=== PATIENT | male | born 1970 | race American Indian/Alaskan Native ===

== ENCOUNTER → 2019-07-17 12:21 | Outpatient (BNVA) | payer MEDICARE, SELFPAY | PROVIDERS: Family Provider Family Medicine; PCP Family Medicine; Visit Provider Specialist | DX: G40.319 Generalized idiopathic epilepsy and epileptic syndromes, intractable, without status epilepticus (principal); F17.210 Nicotine dependence, cigarettes, uncomplicated | CPT/HCPCS: 95816 ==

== ENCOUNTER → 2019-07-18 15:31 | Outpatient (BNVA) | payer MEDICARE, MEDICAID, SELFPAY | PROVIDERS: Family Provider Family Medicine; PCP Family Medicine; Visit Provider Family Medicine | DX: M25.519 Pain in unspecified shoulder (principal); E78.5 Hyperlipidemia, unspecified; E11.9 Type 2 diabetes mellitus without complications; I10 Essential (primary) hypertension | CPT/HCPCS: 73030; 80053; 80061; 83036; 85025 ==

== ENCOUNTER 2019-09-18 12:27 | Outpatient (CLI) | payer MEDICARE, SELFPAY ==
--- NOTE | 2019-09-18 12:42 | CT_ITS ---
WS: [id number] CT arthrogram right shoulder TECHNIQUE: CT arthrogram right shoulder with coronal and sagittal reformatted images. CLINICAL INFORMATION: SHOULDER PAIN COMPARISON: None. DLP: [address] scans at [facility] use at least one of these dose optimization techniques: automat ed exposure control; mA and/or kV adjustment per patient size (includes targeted exams where dose is matched to clinical indication); or iterative reconstruction. FINDINGS: CT arthrogram right shoulder post fluoroscopic guided administration of contrast. Mild degenerative a rthritis at the AC joint with mild downsloping of the acromion. Distal clavicle is normal. Normal bic eps tendon in the bicipital groove. Normal physiologic fluid along the biceps tendon sheath. Biceps l abral anchor appears intact. Supraspinatus and infraspinatus appear normal. No evidence of dissecting contrast to indicate supraspinatus tear. No significant atrophy of the muscle belly. Normal teres minor. Distal subscapularis tendon appears intact. Normal middle glenohumeral ligament. Glenoid labrum appears grossly intact. No visualized labral tears. Somewhat diminutive shoulder capsu le with axillary recess blunting can be seen with adhesive capsulitis in appropriate clinical setting . Normal glenohumeral articulation. Normal glenoid. Right lung is well aerated. CT/CT shoulder RT w con [id number] IMPRESSION: 1. Rotator cuff appears intact. No full-thickness rotator cuff tears. No rotat or cuff atrophy or muscle belly atrophy. 2. Normal biceps tendon in the bicipital groove. 3. Normal biceps labral anchor. Glenoid labrum appears intact 4. Somewhat diminutive shoulder capsule with blunting and thickening of the ax illary recess can be seen with adhesive capsulitis in appropriate clinical sett ing. 5. Mild degenerative arthritis AC joint with mild downsloping of the acromion.
--- NOTE | 2019-09-18 12:42 | IR_ITS ---
WS: [id number] SHOULDER ARTHROGRAM RIGHT Fluoroscopic guided right shoulder arthrogram CLINICAL INFORMATION: SHOULDER PAIN COMPARISON: None. PROCEDURE: The procedure including risks, benefits and complications were discussed with the patient, who agreed to proceed. Using sterile technique, the patient was prepped and draped in the usual ster ile fashion. After 1% lidocaine injection using fluoroscopic guidance, a 22-gauge spinal needle was a dvanced into the glenohumeral joint. Approximately 13 ml of a solution containing 10 ml normal saline , 10 ml Omnipaque 300 was administered. No immediate complications. FLUOROSCOPY TIME: 0.2 minutes. IR/IR arthrogram shoulderRT [id number] IMPRESSION: Uncomplicated fluoroscopic-guided right shoulder arthrogram. CT to follow.
[2019-09-18] MEDS: iohexol 300 mg/mL 50 mL Btl INTRA-ARTI (13:49)
== END 2019-09-18 12:28 | disposition home or self-care (01) ==
LOC: RADWPI 12:33
PROVIDERS: Family Provider Family Medicine; PCP Family Medicine; Visit Provider Orthopaedic Surgery
DX: M19.011 Primary osteoarthritis, right shoulder (principal); M25.511 Pain in right shoulder
CPT/HCPCS: 23350; 73201; 77002; J2001; Q9967

== ENCOUNTER 2019-10-03 06:00 | Outpatient (RCR) | payer MEDICARE, MEDICAID, SELFPAY | END 2019-10-10 23:59 | disposition home or self-care (01) | LOC: TPT 06:00 | PROVIDERS: Family Provider Family Medicine; PCP Family Medicine; Referring Provider Orthopaedic Surgery; Visit Provider Orthopaedic Surgery | DX: M75.01 Adhesive capsulitis of right shoulder (principal) | CPT/HCPCS: 80053; 80061; 97110; 97163; 97530 ==

== ENCOUNTER 2019-10-11 06:00 | Outpatient (RCR) | payer MEDICARE, MEDICAID, SELFPAY | END 2019-11-09 23:59 | disposition home or self-care (01) | LOC: TPT 06:00 | PROVIDERS: Family Provider Family Medicine; PCP Family Medicine; Visit Provider Orthopaedic Surgery | DX: M75.01 Adhesive capsulitis of right shoulder (principal) | CPT/HCPCS: 97110; 97112; 97140; 97530 ==

== ENCOUNTER 2019-11-13 | Outpatient (RCR) | payer MEDICARE, MEDICAID, SELFPAY | END 2019-11-29 | disposition home or self-care (01) | LOC: TPT | PROVIDERS: Family Provider Family Medicine; PCP Family Medicine; Visit Provider Orthopaedic Surgery | DX: M75.01 Adhesive capsulitis of right shoulder (principal) | CPT/HCPCS: 97110; 97140; 97530 ==

== ENCOUNTER → 2020-01-02 13:26 | Outpatient (BNVA) | payer MEDICARE, MEDICAID, SELFPAY | PROVIDERS: Family Provider Family Medicine; PCP Family Medicine; Visit Provider Specialist | DX: G40.319 Generalized idiopathic epilepsy and epileptic syndromes, intractable, without status epilepticus (principal); G40.802 Other epilepsy, not intractable, without status epilepticus; T50.905A Adverse effect of unspecified drugs, medicaments and biological substances, initial encounter; M75.01 Adhesive capsulitis of right shoulder | CPT/HCPCS: 99214 ==

== ENCOUNTER → 2020-03-13 14:05 | Outpatient (BNVA) | payer MEDICARE, MEDICAID, SELFPAY | PROVIDERS: Family Provider Family Medicine; PCP Family Medicine; Visit Provider Specialist | DX: G40.319 Generalized idiopathic epilepsy and epileptic syndromes, intractable, without status epilepticus (principal); F17.210 Nicotine dependence, cigarettes, uncomplicated; G25.0 Essential tremor | CPT/HCPCS: 99214 ==

== ENCOUNTER → 2020-04-18 13:51 | Outpatient (BNVA) | payer MEDICARE, MEDICAID, SELFPAY | PROVIDERS: Family Provider Family Medicine; PCP Family Medicine; Visit Provider Family Medicine | DX: E11.9 Type 2 diabetes mellitus without complications (principal); E78.5 Hyperlipidemia, unspecified | CPT/HCPCS: 80053; 80061; 83036; 85025 ==

== ENCOUNTER → 2020-04-22 16:18 | Outpatient (BNVA) | payer MEDICARE, MEDICAID, SELFPAY | PROVIDERS: Family Provider Family Medicine; PCP Family Medicine; Visit Provider Family Medicine | DX: G25.0 Essential tremor (principal) | CPT/HCPCS: 84439; 84443 ==

== ENCOUNTER → 2020-09-05 11:04 | Outpatient (BNVA) | payer MEDICARE, MEDICAID, SELFPAY | PROVIDERS: Family Provider Family Medicine; PCP Family Medicine; Visit Provider Urology | DX: N50.819 Testicular pain, unspecified (principal); R10.32 Left lower quadrant pain; F17.210 Nicotine dependence, cigarettes, uncomplicated | CPT/HCPCS: 81003 ==

== ENCOUNTER → 2020-09-11 14:01 | Outpatient (BNVA) | payer MEDICARE, MEDICAID, SELFPAY | PROVIDERS: Family Provider Family Medicine; PCP Family Medicine; Visit Provider Specialist | DX: G40.802 Other epilepsy, not intractable, without status epilepticus (principal); G40.319 Generalized idiopathic epilepsy and epileptic syndromes, intractable, without status epilepticus; G25.0 Essential tremor; Z96.82 Presence of neurostimulator; F17.210 Nicotine dependence, cigarettes, uncomplicated | CPT/HCPCS: 99213; 99214 ==

== ENCOUNTER 2020-09-25 06:57 | Outpatient (CLI) | payer MEDICARE, MEDICAID, SELFPAY ==
--- NOTE | 2020-09-25 07:15 | US_ITS ---
WS: [id number] SCROTAL ULTRASOUND REASON FOR EXAM: GROIN PAIN COMPARISON: None available. TECHNIQUE: Grayscale and duplex color Doppler ultrasound examination of the scrotum. FINDINGS: RIGHT: Right testes measures 4.9 cm x 3.4 cm x 2.5 cm. Normal echotexture. No focal lesion. Normal blood alexia w. No hydrocele. Right epididymis measures 1.5 cm maximum diameter. LEFT: Left testes measures 3.5 cm x 4.0 cm x 2.5 cm. Normal echotexture. No focal lesion. Normal blood flow . Moderate hydrocele. Left epididymis measures 1.2 cm maximum dimension. No focal abnormality in the left groin. US/US scrotum [id number] IMPRESSION: Moderate left hydrocele.
--- NOTE | 2020-09-25 08:00 | XR_ITS ---
WS: [id number] XR KUB [id number] REASON FOR EXAM: GROIN PAIN FINDINGS: Bowel gas pattern demonstrates a moderate amount of stool throughout the colon. No dilated bowel is i dentified. No free air or retroperitoneal air is noted. No significant abdominal or pelvic calcifications are identified. The configuration of the lumbar spine in the lower thoracic spine suggest a flowing syndesmophyte for mation, symmetric. This would raise the possibility of ankylosing spondylitis. XR/XR KUB [id number] IMPRESSION: No acute abdominal or pelvic abnormality. Findings suggestive of ankylosing spondylitis. The other entity that can have this appearance. The patient may already have an established diagnosis of one o f these.
== END 2020-09-25 06:58 | disposition home or self-care (01) ==
PROVIDERS: PCP Family Medicine; Visit Provider Urology
DX: R10.32 Left lower quadrant pain (principal); N43.3 Hydrocele, unspecified
CPT/HCPCS: 74018; 76870; 81003

== ENCOUNTER → 2020-11-12 16:10 | Outpatient (BNVA) | payer MEDICARE, MEDICAID, SELFPAY | PROVIDERS: PCP Family Medicine; Visit Provider Family Medicine | DX: I10 Essential (primary) hypertension (principal); E78.5 Hyperlipidemia, unspecified; E11.9 Type 2 diabetes mellitus without complications; E78.2 Mixed hyperlipidemia; G47.00 Insomnia, unspecified; R56.9 Unspecified convulsions; Z68.29 Body mass index [BMI] 29.0-29.9, adult; F17.210 Nicotine dependence, cigarettes, uncomplicated | CPT/HCPCS: 80053; 80061; 83036; 84443; 85025 ==

== ENCOUNTER → 2021-01-14 15:01 | Outpatient (BNVA) | payer MEDICARE, MEDICAID, SELFPAY | PROVIDERS: PCP Family Medicine; Visit Provider Specialist | DX: G40.802 Other epilepsy, not intractable, without status epilepticus (principal); G40.319 Generalized idiopathic epilepsy and epileptic syndromes, intractable, without status epilepticus; M54.2 Cervicalgia; G25.0 Essential tremor; Z96.82 Presence of neurostimulator; F17.210 Nicotine dependence, cigarettes, uncomplicated | CPT/HCPCS: 99214 ==

== ENCOUNTER 2021-01-20 15:10 | Outpatient (CLI) | payer MEDICARE, MEDICAID, SELFPAY ==
--- NOTE | 2021-01-20 15:30 | CT_ITS ---
WS: [id number] Abad Raymundo CT CERVICAL SPINE HISTORY: Fall 5 years ago. Neck pain and burning. TECHNIQUE: Contiguous 2.5 mm axial imaging performed through the entire cervical spine. Sagittal and coronal reformats also performed. All CT scans at [facility] use at least one of these do se optimization techniques: automated exposure control; mA and/or kV adjustment per patient size (inc ludes targeted exams where dose is matched to clinical indication); or iterative reconstruction. DLP: 1972.24 mGy-cm. COMPARISON: None available. Increase in the lumbar lordosis. Very mild anterior wedging of C5. No acute fractures. Craniocervical junction is normally aligned. Lateral masses of C1 and C2 are aligned. Bilateral facet joint fusion at C3-4 and C6-7. C2-C3: Mild osteophytic ridging. Mild RIGHT facet joint arthritis with mild RIGHT foraminal narrowing . C3-C4: No significant stenosis. C4-C5: Mild osteophytic ridging and facet arthritis. Mild bilateral foraminal narrowing. C5-C6: Hypertrophic osteophyte extends into the LEFT foramen causing mild foraminal narrowing. Mild b ilateral facet joint arthritis. C6-C7: Mild osteophytic ridging and a LEFT foraminal disc protrusion causing mild stenosis. C7-T1: Small foraminal osteophytes without significant stenosis. Motion artifact at the lung apices. Battery pack in the soft tissues overlying the LEFT thorax CT/CT cervical spin wo con* [id number] IMPRESSION: 1. Bilateral fusion of the C3-4 and C6-7 facet joints. 2. No high-grade central stenosis. 3. LEFT foraminal disc protrusion at C6-7 causing mild LEFT foraminal narrowin g. 4. Multilevel foraminal osteophytes as described above.
== END 2021-01-20 15:11 | disposition home or self-care (01) ==
PROVIDERS: PCP Family Medicine; Visit Provider Specialist
DX: M43.22 Fusion of spine, cervical region (principal); M50.223 Other cervical disc displacement at C6-C7 level; M25.78 Osteophyte, vertebrae
CPT/HCPCS: 72125

== ENCOUNTER 2021-02-04 06:00 | Outpatient (RCR) | payer MEDICARE, MEDICAID, SELFPAY | END 2021-02-08 23:59 | disposition home or self-care (01) | LOC: SPT 06:00 | PROVIDERS: PCP Family Medicine; Referring Provider Specialist; Visit Provider Specialist | DX: M54.2 Cervicalgia (principal) | CPT/HCPCS: 97110; 97162 ==

== ENCOUNTER 2021-02-09 06:00 | Outpatient (RCR) | payer MEDICARE, MEDICAID, SELFPAY | END 2021-03-11 23:59 | disposition home or self-care (01) | LOC: SPT 06:00 | PROVIDERS: PCP Family Medicine; Referring Provider Specialist; Visit Provider Specialist | DX: M54.2 Cervicalgia (principal) | CPT/HCPCS: 97110; 97140 ==

== ENCOUNTER → 2021-02-24 17:14 | Outpatient (BNVA) | payer MEDICARE, MEDICAID, SELFPAY | PROVIDERS: PCP Family Medicine; Visit Provider Family Medicine | DX: M54.5 Low back pain (principal); M54.6 Pain in thoracic spine; E11.9 Type 2 diabetes mellitus without complications; E78.2 Mixed hyperlipidemia; G47.00 Insomnia, unspecified; L25.9 Unspecified contact dermatitis, unspecified cause | CPT/HCPCS: 80053; 80061; 83036; 84443; 85025 ==

== ENCOUNTER 2021-02-26 11:13 | Outpatient (CLI) | payer MEDICARE, MEDICAID, SELFPAY ==
--- NOTE | 2021-02-26 11:21 | XR_ITS ---
WS: [id number] LUMBAR SPINE TECHNIQUE: 5 views of the lumbar spine CLINICAL INFORMATION: M54.5 - Low back pain COMPARISON: None. FINDINGS: Ankylosis of the lumbar spine with flowing syndesmophytes compatible with ankylosing spondylitis. Com plete bony fusion of the sacroiliac joints typical for ankylosing spondylitis.. Recommend correlation with laboratory markers. Vertebral body heights well-preserved. Disc space heights well-preserved. A dvanced facet arthropathy L5-S1. No instability on flexion-extension. XR/XR lumbar spine min 4V [id number] IMPRESSION: 1. Imaging findings compatible with ankylosing spondylitis. 2. No instability on flexion-extension. 3. Complete bony fusion of the sacroiliac joints. 4. Recommend correlation with laboratory markers
--- NOTE | 2021-02-26 11:21 | XR_ITS ---
WS: [id number] THORACIC SPINE TECHNIQUE: 3 views of the thoracic spine CLINICAL INFORMATION: M54.6 - Pain in thoracic spine COMPARISON: None. FINDINGS: Osteopenia. Mild thoracic curve convex right. Moderate thoracic kyphosis with chronic appearing anter ior wedging in the upper and mid thoracic spine. Disc space heights are relatively well-preserved. Pa ravertebral flowing syndesmophytes compatible with ankylosing spondylitis. XR/XR thoracic spine 3V* [id number] IMPRESSION: 1. Findings compatible with ankylosing spondylitis. 2. Mild thoracic curve is mild thoracic kyphosis. 3. Chronic appearing anterior wedging with mild endplate compression deformiti es in the upper and mid thoracic spine. 4. Disc space heights are well-preserved. 5. Moderate facet arthropathy lower thoracic spine.
== END 2021-02-26 11:14 | disposition home or self-care (01) ==
PROVIDERS: PCP Family Medicine; Visit Provider Family Medicine
DX: M54.6 Pain in thoracic spine (principal); M54.5 Low back pain; M48.54XA Collapsed vertebra, not elsewhere classified, thoracic region, initial encounter for fracture; M47.814 Spondylosis without myelopathy or radiculopathy, thoracic region; M40.294 Other kyphosis, thoracic region
CPT/HCPCS: 72072; 72110

== ENCOUNTER 2021-03-12 06:00 | Outpatient (RCR) | payer MEDICARE, MEDICAID, SELFPAY | END 2021-04-10 23:59 | disposition home or self-care (01) | LOC: SPT 06:00 | PROVIDERS: PCP Family Medicine; Referring Provider Specialist; Visit Provider Specialist | DX: M54.2 Cervicalgia (principal) | CPT/HCPCS: 97110; 97140; 97164 ==

== ENCOUNTER → 2021-03-18 13:28 | Outpatient (BNVA) | payer MEDICARE, MEDICAID, SELFPAY | PROVIDERS: PCP Family Medicine; Visit Provider Specialist | DX: G40.802 Other epilepsy, not intractable, without status epilepticus (principal); G25.0 Essential tremor; M45.9 Ankylosing spondylitis of unspecified sites in spine; M48.02 Spinal stenosis, cervical region; Z96.82 Presence of neurostimulator; F17.210 Nicotine dependence, cigarettes, uncomplicated | CPT/HCPCS: 95970; 99214 ==

== ENCOUNTER 2021-04-11 06:00 | Outpatient (RCR) | payer MEDICARE, MEDICAID, SELFPAY | END 2021-05-11 23:59 | disposition home or self-care (01) | LOC: SPT 06:00 | PROVIDERS: PCP Family Medicine; Referring Provider Specialist; Visit Provider Specialist | DX: M54.2 Cervicalgia (principal) | CPT/HCPCS: 97110; 97140; 97164 ==

== ENCOUNTER → 2021-05-01 10:35 | Outpatient (BNVA) | payer MEDICARE, MEDICAID, SELFPAY | PROVIDERS: PCP Family Medicine; Visit Provider Family Medicine | DX: J02.9 Acute pharyngitis, unspecified (principal) | CPT/HCPCS: 87880 ==

== ENCOUNTER → 2021-05-05 08:47 | Outpatient (BNVA) | payer MEDICARE, MEDICAID, SELFPAY | PROVIDERS: PCP Family Medicine; Visit Provider Internal Medicine Rheumatology | DX: M45.6 Ankylosing spondylitis lumbar region (principal); Z79.899 Other long term (current) drug therapy; Z11.59 Encounter for screening for other viral diseases; Z11.1 Encounter for screening for respiratory tuberculosis; G40.909 Epilepsy, unspecified, not intractable, without status epilepticus; Z71.85 Encounter for immunization safety counseling | CPT/HCPCS: 36415; 72040; 72170; 82306; 85651; 86140; 86200; 86431; 86480; 86704; 86803; 86812; 87340; 99204 ==

== ENCOUNTER 2021-05-05 10:47 | Outpatient (CLI) | payer MEDICARE, MEDICAID, SELFPAY ==
--- NOTE | 2021-05-05 10:55 | XR_ITS ---
WS: [id number] Exam: XR pelvis 1-2V* [id number] Date/Time of Exam: 05/05/2021 10:55 AM Reason For Exam: M45.6 - Ankylosing spondylitis lumbar region No pelvic fracture or bone destruction noted. There is partial fusion of both SI joints. Moderate deg enerative change of both hips. Soft tissues are unremarkable. XR/XR pelvis 1-2V* [id number] IMPRESSION: 1. Partial fusion of both SI joints. Bilateral hip DJD. 2. No fracture or bone destruction noted.
--- NOTE | 2021-05-05 10:55 | XR_ITS ---
WS: [id number] Exam: XR cervical spine 3V* [id number] Date/Time of Exam: 05/05/2021 10:55 AM Reason For Exam: M45.6 - Ankylosing spondylitis lumbar region Comparison 01/26/2019. No fracture or dislocation. There is ossification of the anterior longitudinal ligament that may osvaldo holly ankylosing spondylitis. There is also spondylosis of the cervical vertebra from C4 to C7. Facet DJD at all levels. The odontoid is intact. Normal paraspinal soft tissues. Neurostimulator electrodes are seen at the base of the neck on the left. XR/XR cervical spine 3V* [id number] IMPRESSION: 1. No fracture or malalignment. 2. Ossification of the anterior longitudinal ligament which might be seen with ankylosing spondylitis. There is also spondylosis of the vertebra from C4 to C7 . Facet DJD.
[2021-05-05 12:44] LABS: C Reactive Protein 5.8 mg/L (0.0-4.9)
[2021-05-05 12:59] LABS: 25 Hydroxy Vitamin D 21 ng/mL (30-100)
[2021-05-05 13:11] LABS: Hepatitis B Core AB, Total Non-Reactive (Nonreactive); Hepatitis B Surface Antigen Non-Reactive (Nonreactive); Hepatitis C Virus Antibody Non-Reactive (Nonreactive)
[2021-05-06 16:38] LABS: Cyclic Citrullinated Peptide <16 UNITS
[2021-05-07 10:08] LABS: HLA-B27 POSITIVE (NEGATIVE)
[2021-05-07 14:28] LABS: Quantiferon Mitogen 9.36 IU/mL; Quantiferon Nil 0.01 IU/mL; Quantiferon Plus TB1 0.03 IU/mL; Quantiferon Plus TB2 0.02 IU/mL; Quantiferon TB Gold NEGATIVE (NEGATIVE)
[2021-05-08 12:42] LABS: Erythrocyte Sedimentation Rate 2 mm/hr (0-10)
== END 2021-05-05 10:48 | disposition home or self-care (01) ==
LOC: RAD 10:51
PROVIDERS: PCP Family Medicine; Visit Provider Internal Medicine Rheumatology
DX: M45.6 Ankylosing spondylitis lumbar region (principal); Z79.899 Other long term (current) drug therapy; Z11.59 Encounter for screening for other viral diseases; Z11.1 Encounter for screening for respiratory tuberculosis
CPT/HCPCS: 36415; 72040; 72170; 82306; 85651; 86140; 86200; 86431; 86480; 86704; 86803; 86812; 87340

== ENCOUNTER → 2021-05-20 12:24 | Outpatient (BNVA) | payer MEDICARE, MEDICAID, SELFPAY | PROVIDERS: PCP Family Medicine; Visit Provider Family Medicine | DX: J02.9 Acute pharyngitis, unspecified (principal); E11.9 Type 2 diabetes mellitus without complications; E78.2 Mixed hyperlipidemia | CPT/HCPCS: 80053; 80061; 83036; 84443; 85025 ==

== ENCOUNTER → 2021-08-27 14:23 | Outpatient (BNVA) | payer MEDICARE, MEDICAID, SELFPAY | PROVIDERS: PCP Family Medicine; Visit Provider Internal Medicine Rheumatology | DX: M45.0 Ankylosing spondylitis of multiple sites in spine (principal); Z79.899 Other long term (current) drug therapy; M19.90 Unspecified osteoarthritis, unspecified site; G40.909 Epilepsy, unspecified, not intractable, without status epilepticus; Z71.85 Encounter for immunization safety counseling | CPT/HCPCS: 99214 ==

== ENCOUNTER → 2021-09-15 09:33 | Outpatient (BNVA) | payer MEDICARE, MEDICAID, SELFPAY | PROVIDERS: PCP Family Medicine; Visit Provider Specialist | DX: G40.802 Other epilepsy, not intractable, without status epilepticus (principal); G25.0 Essential tremor; M45.9 Ankylosing spondylitis of unspecified sites in spine; Z96.82 Presence of neurostimulator; F17.210 Nicotine dependence, cigarettes, uncomplicated | CPT/HCPCS: 99213; 99214 ==

== ENCOUNTER → 2021-09-16 15:18 | Outpatient (BNVA) | payer MEDICARE, MEDICAID, SELFPAY | PROVIDERS: PCP Family Medicine; Visit Provider Family Medicine | DX: Z12.11 Encounter for screening for malignant neoplasm of colon (principal); E11.9 Type 2 diabetes mellitus without complications; E78.2 Mixed hyperlipidemia; G47.00 Insomnia, unspecified; G40.802 Other epilepsy, not intractable, without status epilepticus; M45.9 Ankylosing spondylitis of unspecified sites in spine; Z79.899 Other long term (current) drug therapy | CPT/HCPCS: 80076; 82565; 85025; 86140 ==

== ENCOUNTER → 2021-09-19 10:04 | Outpatient (BNVA) | payer MEDICARE, MEDICAID, SELFPAY | PROVIDERS: PCP Family Medicine; Visit Provider Family Medicine | DX: E11.9 Type 2 diabetes mellitus without complications (principal); E78.5 Hyperlipidemia, unspecified | CPT/HCPCS: 80061; 83036 ==

== ENCOUNTER 2021-11-05 05:40 | Day surgery (SDC) | payer MEDICARE, MEDICAID, SELFPAY ==
[2021-11-03 13:06] VITALS: BMI 29.5
[2021-11-05 06:07] VITALS: BP 127/76; PULSE 66; RESP 18; TEMP 36.1; O2SAT 100
[2021-11-05] MEDS: sodium chloride 0.9% 1,000 ML 30 ML IV (06:16)
--- NOTE | 2021-11-05 06:51 | P.ANESASSM_ITS ---
Pre-Anesthetic Assessment Height/Weight: Height 1.73 m Weight 87.997 kg Temp Pulse Resp BP Pulse Ox 97 F L 66 18 127/76 100 11/05/21 06:07 11/05/21 06:07 11/05/21 06:07 11/05/21 06:07 11/05/21 06:07 Preop Diagnosis: diagnostic Operation Date: 11/05/21 07:00 Proposed Procedures p Colonoscopy 29035/z12.11(Not Applicable) - Pancho Rios MD Was Beta Nereyda taken within 24 hours: Yes Last intake: Intake Last Liquid Date 11/04/21 Last Liquid Time 22:00 Last Solid Date 11/03/21 Last Solid Time 19:30 Social Tobacco and No alcohol Exam alert, oriented x 3, clear to auscultation bilaterally and regular rate & rhythm Airway Submandibular: within normal limits Cervical ROM: within normal limits Mallampati: Class II Dentition: full History/ROS No significant history except as noted and No significant complaints Pulmonary None reported CV/HEM Hypertension None reported Hepatic None reported GI Gastroesophageal Reflux Disease Metabolic Diabetes [place] [facility] [place] Hx seizure. None in past year Neuropsych Seizure Anesthetic Plan ASA status: 3 Anesthesia: MAC Risk of > 500 ml blood loss (7ml/kg in children): No Medications/Allergies Home Medications Medication Instructions Recorded Confirmed Last Taken Type blood-glucose meter (Accu-Chek #1 each 07/18/19 11/03/21 Unknown Rx Magali Plus Meter) blood sugar diagnostic (Accu-Chek #100 each 07/26/19 11/03/21 Unknown Rx Magali Plus test strp) Diabetic shoes #1 ea 05/01/20 11/03/21 Unknown Rx clonazepam 0.5 mg tablet (Klonopin) 0.5 mg PO DAILY PRN #30 tab 02/24/21 11/05/21 Unknown Rx prednisone 10 mg tablet See Rx Instructions PO .COMPLEX 05/05/21 11/05/21 Unknown Rx PRN #30 tab secukinumab 150 mg/mL subcutaneous 300 mg (2 mL) SUBCUT .[id number] #2 ml 08/27/21 11/05/21 10/31/21 Rx pen injector (Cosentyx Pen) primidone 50 mg tablet 50 mg PO BID #180 tab 09/15/21 11/05/21 11/04/21 Rx zonisamide 100 mg capsule 600 mg PO DAILY #540 cap 09/15/21 11/05/21 11/04/21 Rx (Zonegran) suvorexant 20 mg tablet (Belsomra) 20 mg PO .qhs #30 tab 09/30/21 11/05/21 11/04/21 Rx fenofibrate 160 mg tablet 160 mg PO DAILY 11/03/21 11/05/21 11/04/21 History metformin 1,000 mg tablet 1,000 mg PO DAILY 11/03/21 11/05/21 11/04/21 History metoprolol tartrate 25 mg tablet 12.5 mg PO DAILY 11/03/21 11/05/21 11/04/21 History rosuvastatin 10 mg tablet 10 mg PO BEDTIME 11/03/21 11/05/21 11/04/21 History Allergies Allergy/AdvReac Type Severity Reaction Status Date / Time carbamazepine [From Tegretol] Allergy Unresponsiv Verified 11/03/21 13:01 e gabapentin Allergy ALGY-Hives Verified 11/03/21 13:01 phenytoin [From Dilantin] Allergy ADV-Weaknes Verified 11/03/21 13:01 s Current Medications Generic Name Dose Route Start Last Admin Trade Name Freq PRN Reason Stop Dose Admin Sodium Chloride 1,000 mls @ 30 mls/hr 11/05/21 06:00 11/05/21 06:16 Sodium Chloride 0.9% IV 11/06/21 05:59 30 mls/hr .Q24H PREMA Administration PFSH Anesthesia Medical History Acute pharyngitis Axial spondyloarthritis Cellulitis Contact dermatitis Diabetes Facial droop Generalized epilepsy, intractable Headache High risk medication use Hyperlipidemia Immunization counseling Inflammatory arthritis Insomnia Medication reaction Seizures Strep pharyngitis Surgical History H/O repair of left rotator cuff 2014 Status post VNS (vagus nerve stimulator) placement Family History Other No pertinent family history Social History Smoking and tobacco status: current every day smoker cigarettes Packs smoked pe r day: 0.5 Years cigarettes smoked: 20 Second hand smoke exposure: Yes Smoking risk assessment/counseling performed?: No Alcohol intake: never Lives independently: Yes Household members: significant other Housing: House service: No Current occupational status: disabled History of recent travel: No Current gender identity: Male Data Anesthesia Cardiac Studies: No Data to Display
--- NOTE | 2021-11-05 07:00 | P.HP_ITS ---
Same Day Surgery H&P Indication for Procedure/HPI DATE OF PROCEDURE: November 05, 2021 CHIEF COMPLAINT/INDICATIONFOR SURGICAL PROCEDURE: screening colonoscopy PREOP DIAGNOSIS: diagnostic PLANNED PROCEDURE: Operation Date: 11/05/21 07:00 Proposed Procedures p Colonoscopy 53318/z12.11(Not Applicable) - Pancho Rios MD Medications/Allergies* Home Medications Medication Instructions Recorded Confirmed Type fenofibrate 160 mg tablet 160 mg PO DAILY 11/03/21 11/05/21 History metformin 1,000 mg tablet 1,000 mg PO DAILY 11/03/21 11/05/21 History metoprolol tartrate 25 mg tablet 12.5 mg PO DAILY 11/03/21 11/05/21 History rosuvastatin 10 mg tablet 10 mg PO BEDTIME 11/03/21 11/05/21 History Allergies/Adverse Reactions Allergy/AdvReac Type Severity Reaction Status Date / Time carbamazepine [From Tegretol] Allergy Unresponsiv Verified 11/03/21 13:01 e gabapentin Allergy ALGY-Hives Verified 11/03/21 13:01 phenytoin [From Dilantin] Allergy ADV-Weaknes Verified 11/03/21 13:01 s Current Medications: Generic Name Dose Route Start Last Admin Trade Name Freq PRN Reason Stop Dose Admin Sodium Chloride 1,000 mls @ 30 mls/hr 11/05/21 06:00 11/05/21 06:16 Sodium Chloride 0.9% IV 11/06/21 05:59 30 mls/hr .Q24H PREMA Administration Pertinent History/Comorbid Conditions* Medical History (Updated 09/16/21 @ 15:15 by Sharon Carter MD) Acute pharyngitis Axial spondyloarthritis Cellulitis Contact dermatitis Diabetes Facial droop Generalized epilepsy, intractable Headache High risk medication use Hyperlipidemia Immunization counseling Inflammatory arthritis Insomnia Medication reaction Seizures Strep pharyngitis Surgical History (Updated 10/03/19 @ 09:35 by Sharon Carter MD) H/O repair of left rotator cuff 2014 Status post VNS (vagus nerve stimulator) placement Family History (Updated 09/25/20 @ 08:12 by Raven Yates LPN) No pertinent family history Social History Smoking and tobacco status: current every day smoker cigarettes Packs smoked per day: 0.5 Years cigarettes smoked: 20 Second hand smoke exposure: Yes Smoking risk assessment/counseling performed?: No Alcohol intake: never Lives independently: Yes Household members: significant other Housing: House [employer] service: No Current occupational status: disabled History of recent travel: No Current gender identity: Male Pertinent Exam Findings alert, oriented x 3 and regular rate & rhythm Recommendations Surgery/Procedure today Coding Level of Care Code Acute Sports Physiologist for Pinky Guerra
[2021-11-05 07:29] VITALS: BP 131/79; PULSE 70; RESP 16; TEMP 36.4; O2SAT 100
[2021-11-05 07:40] VITALS: BP 118/83; PULSE 67; RESP 18; O2SAT 98
--- NOTE | 2021-11-05 13:05 | ANE.PACU2 ---
Inpatient post-anesthesia follow up: Airway intact: Yes Vital signs: Temperature 97.6 F Pulse Rate 67 Respiratory Rate 18 Blood Pressure 118/83 Pulse Oximetry 98 Oxygen Delivery Me thod Room Air Oxygen Flow Rate 4 Fraction of Inspir ed Oxygen Hydration adequate: Yes Nausea and vomiting: No Pain level: 2 Mental status: Baseline
== END 2021-11-05 07:59 | disposition home or self-care (01) ==
PROVIDERS: PCP Family Medicine; Visit Provider Surgery
PROC: 0DJD8ZZ Inspection of Lower Intestinal Tract, Via Natural or Artificial Opening Endoscopic (ICD-10-PCS; CPT 45378; principal; 2021-11-05 07:00)
DX: Z12.11 Encounter for screening for malignant neoplasm of colon (principal); K63.5 Polyp of colon; K64.8 Other hemorrhoids; E11.9 Type 2 diabetes mellitus without complications; E78.5 Hyperlipidemia, unspecified; F17.210 Nicotine dependence, cigarettes, uncomplicated; I10 Essential (primary) hypertension; K21.9 Gastro-esophageal reflux disease without esophagitis
CPT/HCPCS: 45380; 88305; J2704; J7030

== ENCOUNTER → 2021-12-24 13:57 | Outpatient (BNVA) | payer MEDICARE, MEDICAID, SELFPAY | PROVIDERS: PCP Family Medicine; Visit Provider Internal Medicine Rheumatology | DX: M45.9 Ankylosing spondylitis of unspecified sites in spine (principal); M54.12 Radiculopathy, cervical region; Z79.899 Other long term (current) drug therapy; G40.909 Epilepsy, unspecified, not intractable, without status epilepticus; Z71.85 Encounter for immunization safety counseling | CPT/HCPCS: 99214 ==

== ENCOUNTER → 2021-12-30 09:07 | Outpatient (BNVA) | payer MEDICARE, MEDICAID, SELFPAY | PROVIDERS: PCP Family Medicine; Visit Provider Internal Medicine Rheumatology | DX: E11.9 Type 2 diabetes mellitus without complications (principal); E78.5 Hyperlipidemia, unspecified; M45.9 Ankylosing spondylitis of unspecified sites in spine; Z79.899 Other long term (current) drug therapy | CPT/HCPCS: 80053; 80061; 80076; 82565; 83036; 85025; 86140 ==

== ENCOUNTER 2022-01-14 06:00 | Outpatient (RCR) | payer MEDICARE, MEDICAID, SELFPAY | END 2022-02-08 23:59 | disposition home or self-care (01) | LOC: TPT 06:00 | PROVIDERS: PCP Family Medicine; Referring Provider Internal Medicine Rheumatology; Visit Provider Internal Medicine Rheumatology | DX: M54.2 Cervicalgia (principal) | CPT/HCPCS: 97110; 97140; 97163 ==

== ENCOUNTER → 2022-01-30 12:17 | Outpatient (BNVA) | payer MEDICARE, MEDICAID, SELFPAY | PROVIDERS: PCP Family Medicine; Visit Provider Family Medicine | DX: M25.561 Pain in right knee (principal); M17.11 Unilateral primary osteoarthritis, right knee | CPT/HCPCS: 73562 ==

== ENCOUNTER 2022-02-09 06:00 | Outpatient (RCR) | payer MEDICARE, MEDICAID, SELFPAY | END 2022-03-11 23:59 | disposition home or self-care (01) | LOC: TPT 06:00 | PROVIDERS: PCP Family Medicine; Referring Provider Internal Medicine Rheumatology; Visit Provider Internal Medicine Rheumatology | DX: M45.9 Ankylosing spondylitis of unspecified sites in spine (principal); M54.2 Cervicalgia | CPT/HCPCS: 97110; 97140 ==

== ENCOUNTER → 2022-03-17 10:32 | Outpatient (BNVA) | payer MEDICARE, MEDICAID, SELFPAY | PROVIDERS: PCP Family Medicine; Visit Provider Specialist | DX: G40.802 Other epilepsy, not intractable, without status epilepticus (principal); G25.0 Essential tremor; Z45.42 Encounter for adjustment and management of neurostimulator; Z96.82 Presence of neurostimulator | CPT/HCPCS: 95971; 99214 ==

== ENCOUNTER → 2022-04-06 13:20 | Outpatient (BNVA) | payer MEDICARE, MEDICAID, SELFPAY | PROVIDERS: PCP Family Medicine; Visit Provider Internal Medicine Rheumatology | DX: M45.9 Ankylosing spondylitis of unspecified sites in spine (principal); W19.XXXA Unspecified fall, initial encounter; Z79.899 Other long term (current) drug therapy; M46.90 Unspecified inflammatory spondylopathy, site unspecified; Z71.85 Encounter for immunization safety counseling; M25.461 Effusion, right knee; G40.802 Other epilepsy, not intractable, without status epilepticus; Z96.82 Presence of neurostimulator | CPT/HCPCS: 36415; 80076; 82565; 85025; 86140; 99214 ==

== ENCOUNTER → 2022-04-30 16:50 | Outpatient (BNVA) | payer MEDICARE, MEDICAID, SELFPAY | PROVIDERS: PCP Family Medicine; Visit Provider Family Medicine | DX: T78.40XA Allergy, unspecified, initial encounter (principal); E11.9 Type 2 diabetes mellitus without complications; E78.5 Hyperlipidemia, unspecified; E11.8 Type 2 diabetes mellitus with unspecified complications; G25.0 Essential tremor | CPT/HCPCS: 80053; 80061; 83036; 84443; 85025 ==

== ENCOUNTER 2022-06-02 10:20 | Outpatient (CLI) | payer MEDICARE, MEDICAID, SELFPAY ==
--- NOTE | 2022-06-02 10:35 | XRR_ITS ---
PROCEDURE INFORMATION: Exam: XR Right Knee Exam date and time: 06/02/2022 10:38 AM Age: 52 years old Clinical indication: Pain; Knee; Right; Additional info: M25.561 - pain in right knee TECHNIQUE: Imaging protocol: Radiologic exam of the Right knee. Views: 3 views. COMPARISON: CR XR knee RT 3V* [id number] 01/30/2022 12:26 PM FINDINGS: Bones/joints: Negative for acute bony abnormality. Soft tissues: Unremarkable XR/XR knee RT 3V* [id number] IMPRESSION: No acute findings.
== END 2022-06-02 10:21 | disposition home or self-care (01) ==
LOC: RAD 10:22
PROVIDERS: PCP Family Medicine; Visit Provider Internal Medicine Rheumatology
DX: M25.561 Pain in right knee (principal)
CPT/HCPCS: 73562

== ENCOUNTER → 2022-06-23 14:35 | Outpatient (BNVA) | payer MEDICARE, MEDICAID, SELFPAY | PROVIDERS: PCP Family Medicine; Visit Provider Internal Medicine Rheumatology | DX: M45.9 Ankylosing spondylitis of unspecified sites in spine (principal); Z79.899 Other long term (current) drug therapy; M46.90 Unspecified inflammatory spondylopathy, site unspecified; Z71.85 Encounter for immunization safety counseling; S89.91XA Unspecified injury of right lower leg, initial encounter; Y93.9 Activity, unspecified | CPT/HCPCS: 99214 ==

== ENCOUNTER 2022-06-29 06:53 | Emergency (ER) | payer MEDICARE, MEDICAID, SELFPAY ==
[2022-06-29] VITALS (31 sets, daily range): BP systolic 103–136; BP diastolic 68–94; PULSE 109–132; RESP 16–37; TEMP 36.8; O2SAT 92–98
--- NOTE | 2022-06-29 07:02 | XRR_ITS ---
PROCEDURE INFORMATION: Exam: XR Chest Exam date and time: 06/29/2022 7:15 AM Age: 52 years old Clinical indication: Cough and shortness of breath; Prior surgery; Surgery type: Vns; Additional info: Dyspnea/cough TECHNIQUE: Imaging protocol: Radiologic exam of the chest. Views: 1 view. COMPARISON: CR XR chest 2V* [id number] 01/26/2019 3:45 PM FINDINGS: Tubes, catheters and devices: Vagal nerve stimulator device noted overlying the left chest. Entirety of the wires are not well visualized. Lungs: The lung parenchyma is clear. Pleural spaces: No pneumothorax. No pleural effusion. Heart/Mediastinum: Heart is mildly prominent for size. Bones/joints: Unremarkable. XR/XR chest 1V portable [id number] IMPRESSION: Mild cardiomegaly.
--- NOTE | 2022-06-29 07:06 | USCV_ITS ---
Joeholly Abad Age: 52 Gender: M : 1970 Exam Date: 06/29/2022 07:32 Ordering Phys: Duane Damon DO Technologist: CT Exam Location: [facility] [place]_ Indication: pain/swellimg-rt PROCEDURES: On the right side, the common femoral, superficial femoral, profunda femoral, popliteal, posterior tibial, greater saphenous veins and the peroneal trunk were identified and interrogated in the standard fashion. FINDINGS: Acute DVT in the right pereonea vein. No thrombus above the knee joint. CONCLUSIONS Acute, mobile right peroneal vein thrombus. Dr. Toshia Tsai DO (Electronically Signed) Final Date: 29 June 2022 08:33 S
--- NOTE | 2022-06-29 07:07 | CTR_ITS ---
PROCEDURE INFORMATION: Exam: CTA Chest With Contrast Exam date and time: 06/29/2022 7:27 AM Age: 52 years old Clinical indication: Shortness of breath; Prior surgery; Surgery type: Vns; Additional info: Dyspnea, hypoxia and tachycardia TECHNIQUE: Imaging protocol: Computed tomographic angiography of the chest with contrast. 3D rendering (Not supervised by radiologist): MIP and/or 3D reconstructed images were created by the technologist. Radiation optimization: All CT scans at this facility use at least one of these dose optimization techniques: automated exposure control; mA and/or kV adjustment per patient size (includes targeted exams where dose is matched to clinical indication); or iterative reconstruction. Contrast material: OMNI 350; Contrast volume: 78 ml; Contrast route: INTRAVENOUS (IV); COMPARISON: CR (CHEST, ) 06/29/2022 7:15 AM RADIATION DOSE METRICS: Total DLP (mGy-cm): 418.12 FINDINGS: Tubes, catheters and devices: Vagal nerve stimulator device overlying the left chest. Pulmonary arteries: Significant bilateral extensive pulmonary emboli, extending into all segmental vessels of the bilateral pulmonary arteries. The main pulmonary artery measures up to 3.2 cm in diameter. Aorta: The aorta is normal in course and caliber. Lungs: The lungs are clear and without focal consolidation. Pleural spaces: No pneumothorax. No pleural effusion. Heart: Mild flattening of the interventricular septum. Heart RV/LV ratio: RV to LV ratio of 1.15. Lymph nodes: The visualized supraclavicular region appears normal. No mediastinal or hilar adenopathy is identified. Bones/joints: Flowing syndesmophytes along the anterior margin of the spine. Possible fusion of the thoracic facets. Soft tissues: Unremarkable. CT/CT angio chest PE protcl [id number] IMPRESSION: Extensive bilateral pulmonary emboli with signs concerning for pulmonary hypertension and right heart strain.
--- NOTE | 2022-06-29 07:07 | W.ED.SOB ---
HPI - SOB/Dyspnea General: Chief Complaint: Shortness of Breath/Dyspnea Stated Complaint: SOB Time Seen by Provider: 06/29/22 07:01 Source: patient Mode of arrival: EMS History of Present Illness: HPI Narrative: 52-year-old male presents emergency room complaining of shortness of breath rapid heart rate. He has also had right leg pain.. Symptoms began about 4 days ago. Patient is not normally on oxygen and is requiring 4 L by nasal cannula. No history of DVT or PE. Patient does admit to having been very inactive prior to the onset of this essentially bedridden sounds like it was mostly because of his back pain. He is on Cosentyx he has a history of ankylosing spondylitis. He denies any fever sweats or chills denies any cough. No chest pain. He is not on any anticoagulants. Patient is a former smoker. He is not on any inhaled medications. He was never diagnosed with COPD. MD elicited complaint: shortness of breath Onset (ago): day(s) (4) Timing: constant Severity: severe Exacerbating factors: exertion Relieving factors: oxygen and rest Associated symptoms: Reports extremity pain; Deny abdominal pain, chest congestion, chest pain, cough, diaphoresis, dizziness, fever(s), hemoptysis, lightheadedness, myalgias, nausea, orthopnea, palpitations, paresthesias, polydipsia, polyuria, rash, sense of impending doom, syncope or vomiting Treatment prior to arrival: oxygen Related Data: Home oxygen amount: none Review of Systems Const: Denies: fever(s), chills, fatigue, malaise or diaphoresis ENMT: Denies: throat pain, ear or mastoid pain, nasal discharge or nasal congestion Card: Denies: chest pain, palpitations, lightheadedness, syncope or orthopnea Resp: Reports: dyspnea; Denies: hemoptysis or chest congestion GI: Denies: abdominal pain, nausea or vomiting : Denies: flank pain, dysuria, urinary frequency or urinary urgency Musc: Reports: extremity pain Skin/Breast: Denies: rash or pruritus Neuro: Denies: dizziness Endo: Denies: polyuria or polydipsia PFSH ED PFSH: Medical History Acute pharyngitis Axial spondyloarthritis Cellulitis Contact dermatitis Diabetes Facial droop Generalized epilepsy, intractable Headache High risk medication use Hyperlipidemia Immunization counseling Inflammatory arthritis Insomnia Medication reaction Right knee injury Seizures Strep pharyngitis Surgical History H/O repair of left rotator cuff 2013 Status post colonoscopy (11/05/21) Status post VNS (vagus nerve stimulator) placement Family History Other No pertinent family history Social History Smoking and tobacco status: former smoker Quit status (tobacco): has quit using tobacco Year quit tobacco: 04/20/22 Former quit date comment: smoked 0.5 PPD x 30 yrs Second hand smoke exposure: No Smoking risk assessment/counseling performed?: No Alcohol intake: never Lives independently: Yes Household members: significant other Housing: House service: No Current occupational status: disabled History of recent travel: No Current gender identity: Male Special edwige needs: No Physical Exam Const: COMMON NORMALS: no acute distress GENERAL APPEARANCE: cooperative and comfortable ORIENTATION/CONSCIOUSNESS: Yes awake, Yes oriented to person, Yes oriented to place and Yes oriented to time HENMT: COMMON NORMALS: normocephalic, atraumatic and hearing grossly normal bilaterally HEAD & SCALP: normocephalic and atraumatic Resp: COMMON NORMALS: normal respiratory effort, No retractions, No use of accessory muscles and clear to auscultation bilaterally AUSCULTATION: clear to auscultation bilaterally Cardio: COMMON NORMALS: regular rate, regular rhythm and No murmurs present (Cardio) RATE: regular rate RHYTHM: regular rhythm GI: COMMON NORMALS: Soft to palpation and No hepatosplenomegaly present AUSCULTATION: Yes normoactive bowel sounds PALPATION: Yes Soft to palpation, No Tenderness to palpation present (GI), No Guarding due to palpation present (GI) and Yes No hepatosplenomegaly present Extremity: COMMON NORMALS: no clubbing, cyanosis or edema and no pedal edema OTHER: Moderate right posterior leg pain mostly in the popliteal fossa and distal posterior thigh. No significant swelling. Neuro: SENSORIUM/ORIENTATION: Yes oriented to person, Yes oriented to place and Yes oriented to time Skin: COMMON NORMALS: no rashes or lesions noted GENERAL SKIN EXAM: no rashes or lesions noted Course Vital Signs: Vital signs: Vital Signs Temperature 98.2 F 06/29/22 06:58 Pulse Rate 109 H 06/29/22 13:30 Respiratory Rate 18 06/29/22 13:30 Blood Pressure 130/83 06/29/22 14:00 Pulse Oximetry 98 06/29/22 14:00 Oxygen Delivery Me thod 06/29/22 08:06 Oxygen Flow Rate 4 06/29/22 08:00 MDM - SOB/Dyspnea Medical Decision Making Patient has high clot burden for PE in near saddle embolism on the right. He also has large right ventricular thrombus. Discussed with Dr. Celaya recommended that we look to [facility] for possible thrombectomy from the right ventricle. We tried multiple different facilities they all concurred with Dr. Celaya's assessment but all had limitations because of no available beds. Ultimately we were able to get him transferred to [facility]. Patient transferred via ground ambulance because of whether there is no available aircraft to transfer by. Medical Records I reviewed the patient's medical records. Lab Data I reviewed the patient's lab results. 06/29/22 07:07 06/29/22 07:07 Labs/Radiology: Radiology Impressions Chest X-Ray 06/29/22 07:02 IMPRESSION: Mild cardiomegaly. Chest CTA 06/29/22 07:07 IMPRESSION: Extensive bilateral pulmonary emboli with signs concerning for pulmonary hypertension and right heart strain. ADDENDUM: 06/29/22 0754 THIS REPORT CONTAINS FINDINGS THAT MAY BE CRITICAL TO PATIENT CARE. The findings were verbally communicated via telephone conference with DUANE Culver at 7:52 AM ANIMAL PARK CODE ENFORCEMENT OFFICER on 06/29/2022. The findings were acknowledged and understood. Laboratory Results WBC 11.2 10^3/uL (4.0-10.0) H 06/29/22 07:07 RBC 4.83 10^6/uL (4.1-5.3) 06/29/22 07:07 Hgb 14.0 g/dL (11.7-16.6) 06/29/22 07:07 Hct 43.0 % (42.0-52.0) 06/29/22 07:07 MCV 89.0 fl (80-94) 06/29/22 07:07 MCH 29.0 pg (28.0-34.0) 06/29/22 07:07 MCHC 32.6 g/dL (30.0-36.0) 06/29/22 07:07 RDW 13.3 % (12.1-15.1) 06/29/22 07:07 Plt Count 218 10^3/cmm (130-400) 06/29/22 07:07 MPV 11.5 fL (7.4-10.4) H 06/29/22 07:07 Neut % (Auto) 64.6 % 06/29/22 07:07 Lymph % (Auto) 24.9 % 06/29/22 07:07 [place] % (Auto) 6.8 % 06/29/22 07:07 Eos % (Auto) 2.5 % 06/29/22 07:07 Baso % (Auto) 0.9 % 06/29/22 07:07 Neut # (Auto) 7.23 10^3/uL (1.8-7.7) 06/29/22 07:07 Lymph # (Auto) 2.8 10^3/uL (0.8-4.8) 06/29/22 07:07 [place] # (Auto) 0.8 10^3/uL (0.2-0.9) 06/29/22 07:07 Eos # (Auto) 0.3 10^3/uL (0.0-0.8) 06/29/22 07:07 Baso # (Auto) 0.1 10^3/uL (0.0-0.1) 06/29/22 07:07 Nucleated RBC % (auto) 0 % 06/29/22 07:07 Nucleated RBCs # 0.0 /100WBC 06/29/22 07:07 PT 14.70 SECONDS (12.1-14.9) 06/29/22 07:07 INR 1.12 (0.8-1.2) 06/29/22 07:07 APTT 57.8 SECONDS (23.9-36.7) H D 06/29/22 13:23 Specimen Type Arterial 06/29/22 07:20 Sample Site Brachial, left 06/29/22 07:20 ABG pH 7.42 (7.35-7.45) 06/29/22 07:20 ABG pCO2 27.7 mmHg (35-45) L 06/29/22 07:20 ABG pO2 75.8 mmHg (80.0-100.0) L 06/29/22 07:20 ABG HCO3 17.9 mmol/L (22-26) L 06/29/22 07:20 ABG O2 Saturation 94.6 06/29/22 07:20 ABG Base Excess -5.2 mmol/L (-2.0-2.0) L 06/29/22 07:20 Kory Test Pos 06/29/22 07:20 A-a O2 Gradient 19.2 mmHg (5-10) H 06/29/22 07:20 Hematocrit 42.4 % (42-52) 06/29/22 07:20 Hgb O2 Saturation 93.8 % (95-100) L 06/29/22 07:20 Carboxyhemoglobin 0.1 %THgb (0.4-20.1) L 06/29/22 07:20 Methemoglobin 0.7 % (0.4-1.5) 06/29/22 07:20 Total Hemoglobin 13.8 g/dL (14-18) L 06/29/22 07:20 Sodium 144.0 mmol/L (131-143) H 06/29/22 07:20 Potassium 3.8 mmol/L (3.5-5.0) 06/29/22 07:20 Glucose 163.0 mg/dL (70-115) H 06/29/22 07:20 Ionized Calcium 1.2 mmol/L (1.1-1.4) 06/29/22 07:20 O2 Delivery Device Nc 06/29/22 07:20 O2 Liters/Min 4.0 % 06/29/22 07:20 FiO2 36.0 % 06/29/22 07:20 Spa Receptionist ID Cak 06/29/22 07:20 Sodium 142 mmol/L (136-145) 06/29/22 07:07 Potassium 4.4 mmol/L (3.5-5.1) 06/29/22 07:07 Chloride 107 mmol/L (98-107) 06/29/22 07:07 Carbon Dioxide 19 mmol/L (22-29) L 06/29/22 07:07 Anion Gap 20.4 (5-19) H 06/29/22 07:07 BUN 31 mg/dL (6-20) H 06/29/22 07:07 Creatinine 1.6 mg/dL (0.7-1.2) H 06/29/22 07:07 GFR Calculation 45.4 mL/min (90-130) L 06/29/22 07:07 Glucose 160 mg/dL (65-115) H 06/29/22 07:07 Calculated Osmolality 304 mOsm/kg (285-295) H 06/29/22 07:07 Calcium 9.6 mg/dL (8.5-10.5) 06/29/22 07:07 Total Bilirubin 0.3 mg/dL (0.15-1.2) 06/29/22 07:07 AST 28 U/L (0-40) 06/29/22 07:07 ALT 28 U/L (0-41) 06/29/22 07:07 Alkaline Phosphatase 69 U/L (40-130) 06/29/22 07:07 Troponin T Baseline 68 ng/L (0-15) H 06/29/22 07:07 Troponin T 120 Minute 59.55 ng/L (0-15) H 06/29/22 09:07 Delta Troponin T -8.45 ABS# (0-10) L 06/29/22 09:07 Troponin T Hi Sens 6Hr 54.36 ng/L (0-15) H 06/29/22 13:23 Troponin T Hi Sens 6Hr Delta -13.64 ng/L (0-12) L 06/29/22 13:23 Total Protein 7.1 g/dL (6.6-8.7) 06/29/22 07:07 Albumin 4.0 g/dL (3.5-5.2) 06/29/22 07:07 Globulin 3.1 g/dL (1.3-4.6) 06/29/22 07:07 SARS-CoV-2 Ag (Rapid) negative (Negative) 06/29/22 14:11 Critical Care Time Critical Care Time: Critical Care Time: Yes Total Critical Care Time: 45 Attestation: The high probability of a clinically significant, sudden or life threatening deterioration of the patient's respiratory cardiovascular system(s) required my full and direct attention, intervention and personal management. The critical care time is as shown. This time is in addition to time spent performing any reported procedures but includes the following: [x] Data and vital sign review and interpretation [x] Patient assessment, examination and intervention [x] Documentation [x] Medication orders and management Discharge Plan Discharge Condition: Stable Prescriptions: No Action (DME) Diabetic shoes See Rx Instructions .Route .MEDSUPPLY Qty: 1 0RF Rx Instructions: As directed prednisone 10 mg tablet See Rx Instructions PO .COMPLEX PRN (Reason: joint pain) Qty: 30 1RF Rx Instructions: take 1 tab daily for 3-7 days prn joint pain flare PO PRN; primidone 50 mg tablet 50 mg PO BID Qty: 180 3RF Rx Instructions: Take 1-2 in the morning or as needed. Skip once a week on Mondays zonisamide [Zonegran] 100 mg capsule 600 mg PO DAILY Qty: 540 5RF lorazepam [Lorazepam Intensol] 2 mg/mL concentrate 2 mg sublingual DAILY PRN (Reason: anxiety) Qty: 30 1RF Rx Instructions: Take one mL at onset of generalized seizure (DME) blood-glucose meter [Accu-Chek Magali Plus Meter] Misc See Rx Instructions .ROUTE .MEDSUPPLY Qty: 1 0RF Rx Instructions: As directed (DME) Accu-Chek Magali Plus test strp Strip See Rx Instructions .ROUTE .MEDSUPPLY Qty: 100 3RF Rx Instructions: three times a day Cosentyx Pen 150 mg/mL pen injector 300 mg SUBCUT .Q7Lpbvl Qty: 2 4RF (DME) accucheck meter See Rx Instructions .Route .MEDSUPPLY Qty: 1 0RF Rx Instructions: As directed (DME) [facility] lancets and strips See Rx Instructions .Route .MEDSUPPLY Qty: 306 0RF Rx Instructions: As directed clobetasol 0.05 % cream 1 applic topical BID Qty: 45 2RF clonazepam [Klonopin] 0.5 mg tablet 0.5 mg PO DAILY PRN (Reason: anxiety) Qty: 30 3RF rosuvastatin 20 mg tablet 20 mg PO DAILY Qty: 90 0RF metformin 1,000 mg tablet 1,000 mg PO DAILY Rx Instructions: Take 1 tablet by mouth daily. metoprolol tartrate 25 mg tablet 12.5 mg PO DAILY Rx Instructions: Take 1/2 tablet by mouth daily. fenofibrate 160 mg tablet 160 mg PO DAILY Rx Instructions: Take 1 tablet by mouth daily. Belsomra 20 mg tablet 20 mg PO BEDTIME Coding Level of Care Code ED Skoog Operator for Pinky Guerra Exam Detailed
--- NOTE | 2022-06-29 07:11 | ECG_ITS ---
[facility] Test Date: 2022-06-29 Pat Name: Abad Hernandez Department: Room: Gender: Male Lead Person: : 1970 Requested By: Duane Suresh Order Number: [id number] Reading MD: Francois Reza Measurements Intervals [place] Rate: 116 P: 58 SC: 173 QRS: 259 QRSD: 95 T: 21 QT: 340 QTc: 473 Interpretive Statements SINUS TACHYCARDIA POSSIBLE RIGHT VENTRICULAR HYPERTROPHY [SOME/ALL OF: PROMINENT R IN V1, LATE TRANSITION, RAD, LONA, SSS] ANTERIOR MYOCARDIAL INFARCTION , OF INDETERMINATE AGE [40+ ms Q WAVE AND/OR ST/T ABNORMALITY IN V3/V4] INFERIOR MYOCARDIAL INFARCTION , OF INDETERMINATE AGE [40+ ms Q WAVE AND/OR ST/T ABNORMALITY IN II/aVF] No previous ECG available for comparison Electronically Signed On 06-29-2022 8:05:20 ELECTRICIANS TOP HELPER by Francois Reza [id number]
[2022-06-29 07:13] LABS: Basophils # 0.1 10^3/uL (0.0-0.1); Basophils % 0.9 %; Eosinophils # 0.3 10^3/uL (0.0-0.8); Eosinophils % 2.5 %; Lymphocytes # 2.8 10^3/uL (0.8-4.8); Lymphocytes % 24.9 %; Mean Corpuscular HGB Conc 32.6 g/dL (30.0-36.0); Mean Platelet Volume 11.5 fL (7.4-10.4); Monocytes # 0.8 10^3/uL (0.2-0.9); Monocytes % 6.8 %; Neutrophils # 7.23 10^3/uL (1.8-7.7); Neutrophils % 64.6 %; Nucleated Red Blood Cells % 0 %; Platelet Count 218 10^3/cmm (130-400); Red Blood Count 4.83 10^6/uL (4.1-5.3); Red Cell Distribution Width 13.3 % (12.1-15.1); White Blood Count 11.2 10^3/uL (4.0-10.0)
[2022-06-29 07:31] LABS: ABG PCO2 27.7 mmHg (35-45); ABG PH Result 7.42 (7.35-7.45); Alveolar-Arterial Oxygen Gradi 19.2 mmHg (5-10); Arterial Blood Gas Hematocrit 42.4 % (42-52); Base Excess ABG -5.2 mmol/L (-2.0-2.0); Blood Gas Allen Test Pos; Blood Gas Operator Identificat CAK; Blood Gas Sample Site Brachial, left; Blood Gas Sample Type Arterial; Carboxyhemoglobin 0.1 %THgb (0.4-20.1); HCO3 ABG 17.9 mmol/L (22-26); HGB O2 Sat 93.8 % (95-100); Ionized Calcium Level - ABG 1.2 mmol/L (1.1-1.4); Methemoglobin 0.7 % (0.4-1.5); Oxygen Device NC; Oxygen Saturation ABG 94.6; PO2 ABG 75.8 mmHg (80.0-100.0); Potassium Level - ABG 3.8 mmol/L (3.5-5.0); Total Hemoglobin 13.8 g/dL (14-18)
[2022-06-29 07:32] LABS: Alanine Aminotransferase 28 U/L (0-41); Alkaline Phosphatase 69 U/L (40-130); Aspartate Amino Transferase 28 U/L (0-40); Blood Urea Nitrogen 31 mg/dL (6-20); Calcium 9.6 mg/dL (8.5-10.5); Carbon Dioxide 19 mmol/L (22-29); Chloride 107 mmol/L (98-107); Globulin 3.1 g/dL (1.3-4.6); Glomerular Filtration Rate 45.4 mL/min (90-130); Glucose 160 mg/dL (65-115); Osmolality Calculated 304 mOsm/kg (285-295); Sodium 142 mmol/L (136-145); Total Bilirubin 0.3 mg/dL (0.15-1.2); Total Protein 7.1 g/dL (6.6-8.7)
[2022-06-29 07:33] LABS: Troponin(5th) Baseline 68 ng/L (0-15)
[2022-06-29] MEDS: iohexol 350 mg/mL 500 mL Btl (per mL) IV (07:33)
[2022-06-29 07:35] LABS: Anion Gap 20.4 (5-19); Potassium 4.4 mmol/L (3.5-5.1)
--- NOTE | 2022-06-29 07:52 | USCV_ITS ---
Abad Hernandez Age: 52 Gender: M : 1970 Exam Date: 06/29/2022 08:50 Ordering Phys: Duane Damon DO Technologist: [place]am [place] [facility] [place]: rt heart strain pe BP: 109 / 75 HR: 116 Rhythm: Sinus Technical Quality: Adequate MEASUREMENTS (Male / Female) Normal Values 2D ECHO LV Diastolic Diameter PLAX 3.7 cm 4.2 - 5.9 / 3.9 - 5.3 cm LV Systolic Diameter PLAX 2.9 cm IVS Diastolic Thickness 1.3 cm 0.6 - 1.0 / 0.6 - 0.9 cm IVS Systolic Thickness 1.4 cm LVPW Diastolic Thickness 1.1 cm 0.6 - 1.0 / 0.6 - 0.9 cm LVPW Systolic Thickness 1.2 cm LVOT Diameter 2.0 cm LV Ejection Fraction 2D Teich 44.0 % LA Diameter 3.2 cm Aorta at Sinotubular Diameter 2.4 cm M-MODE Aortic Annulus Diameter 3.7 cm LA Ao Ratio MM 1.0 MV E Point Septal Separation 0.7 cm DOPPLER AV Peak Velocity 170.0 cm/s LVOT Peak Velocity 97.0 cm/s AV Area Cont Eq vti 2.1 cm squared AV Area Cont Eq pk 1.8 cm squared MV Area PHT 5.0 cm squared Mitral E to A Ratio 0.9 MV E' Velocity 56.0 cm/s Mitral E to MV E' Ratio 5.8 Mitral E to LV E' Lateral Ratio 4.9 Mitral E to LV E' Septal Ratio 7.0 TR Peak Velocity 430.0 cm/s TR Peak Gradient 74.0 mmHg TV Peak E Velocity 156.0 cm/s Right Atrial Pressure 15.0 mmHg Pulmonary Artery Systolic Pressu 89.0 mmHg RV Acceleration Time 0.1 s FINDINGS Left Ventricle Left ventricle is normal in size. LV systolic function is normal with EF of 60 to 65%. No regional wall motion abnormalities seen. Right Ventricle RV is dilated and hypokinetic. Echogenic structure seen in the RV concerning for large sized RV thrombus Right Atrium Normal in size Left Atrium Normal in size Mitral Valve Structurally normal mitral valve Aortic Valve Structurally normal aortic valve. No significant stenosis or regurgitation. Tricuspid Valve Mild tricuspid regurgitation. RVSP is >60mmHg. This is consistent with severe pulmonary hypertension Pulmonic Valve Not well visualized Pericardium Normal Aorta Normal in size IVC Not well visualized CONCLUSIONS LV systolic function is normal with EF of 60 to 65%. RV is dilated and hypokinetic. RV strain is noted. Echogenic structure seen and not be concerning for large sized artery thrombus. Mild tricuspid regurgitation. Severe pulmonary hypertension. No comparison studies are available Albert Berman MD (Electronically Signed) Final Date: 29 June 2022 09:41 S
[2022-06-29] MEDS: ipratropium-albuterol 3 mL Neb INHALATION (08:00)
[2022-06-29] MEDS: heparin 5,000 unit/mL INJ 1 mL IV (08:25)
[2022-06-29] MEDS: heparin drip 25,000 UNIT/500 ML PREMIX 44.23 UNIT IV (08:28)
[2022-06-29 08:44] LABS: INR 1.12 (0.8-1.2); Partial Thromboplastin Time 25.4 SECONDS (23.9-36.7)
--- NOTE | 2022-06-29 08:57 | PM.HP ---
Providers/Chief Complaint Admitting Physician: Dale Willoughby MD Primary Care Provider: Sharon Carter MD Chief Complaint: SOB History of Present Illness Abad Hernandez is a 52 year old male presenting to the emergency department with shortness of breath for the last 4 days. He states its getting progressively worse. He denies any chest pain, or hemoptysis. He has had some right lower extremity discomfort a week ago. He states it still hurts some but is gotten better. No recent fever, cough. He feels a little bit better on the oxygen. He denies any prior history of pulmonary embolism or DVT. He recently completed a prednisone burst, for a flare of his ankylosing spondylitis. Review of Systems General: Reports: 10 or more systems reviewed and unremarkable except in HPI and below Const: Denies: fever(s) or chills Eyes: Denies: change in vision ENMT: Denies: throat pain Card: Reports: dyspnea on exertion; Denies: chest pain Resp: Reports: dyspnea GI: Denies: abdominal pain : Denies: flank pain Musc: Denies: neck pain Skin/Breast: Denies: rash Neuro: Denies: headache(s) Psych: Denies: anxiety or depression Endo: Denies: polyuria Samm/Lymph: Denies: easy bruising All/Imm: Denies: urticaria Medications/Allergies Home Medications Medication Instructions Recorded Confirmed Last Taken Type blood-glucose meter (Accu-Chek #1 ea 07/18/19 06/29/22 Unknown Rx Magali Plus Meter) blood sugar diagnostic (Accu-Chek #100 ea 07/26/19 06/29/22 Unknown Rx Magali Plus test strips) Diabetic shoes #1 ea 05/01/20 06/29/22 Unknown Rx fenofibrate 160 mg tablet 160 mg PO DAILY 11/03/21 06/29/22 06/28/22 History metformin 1,000 mg tablet 1,000 mg PO DAILY 11/03/21 06/29/22 06/28/22 History metoprolol tartrate 25 mg tablet 12.5 mg PO DAILY 11/03/21 06/29/22 06/28/22 History prednisone 10 mg tablet See Rx Instructions PO .COMPLEX 12/24/21 06/29/22 Unknown Rx PRN joint pain #30 tabs clobetasol 0.05 % topical cream 1 applic topical BID #45 grams 12/25/21 06/29/22 Unknown Rx clonazepam 0.5 mg tablet (Klonopin) 0.5 mg PO DAILY PRN anxiety #30 12/25/21 06/29/22 Unknown Rx tabs lorazepam 2 mg/mL oral concentrate 2 mg sublingual DAILY PRN anxiety 03/17/22 06/29/22 Unknown Rx (Lorazepam Intensol) #30 mL primidone 50 mg tablet 50 mg PO BID #180 tabs 03/17/22 06/29/22 06/28/22 Rx zonisamide 100 mg capsule 600 mg PO DAILY #540 caps 03/17/22 06/29/22 06/28/22 Rx (Zonegran) [facility] lancets and #306 ea 04/30/22 06/29/22 Unknown Rx strips accucheck meter #1 ea 04/30/22 06/29/22 Unknown Rx rosuvastatin 20 mg tablet 20 mg PO DAILY #90 tabs 05/07/22 06/29/22 06/28/22 Rx secukinumab 150 mg/mL subcutaneous 300 mg (2 mL) SUBCUT .Q7Riuxl 06/23/22 06/29/22 Unknown Rx pen injector (Cosentyx Pen) Ankylosing Spondylitis #2 mL suvorexant 20 mg tablet (Belsomra) 20 mg PO BEDTIME 06/29/22 06/29/22 06/28/22 History Allergies Allergy/AdvReac Type Severity Reaction Status Date / Time carbamazepine [From Tegretol] Allergy Unresponsiv Verified 06/23/22 15:06 e gabapentin Allergy ALGY-Hives Verified 06/23/22 15:06 phenytoin [From Dilantin] Allergy ADV-Weaknes Verified 06/23/22 15:06 s PFSH Acute PFSH: Medical History Acute pharyngitis Axial spondyloarthritis Cellulitis Contact dermatitis Diabetes Facial droop Generalized epilepsy, intractable Headache High risk medication use Hyperlipidemia Immunization counseling Inflammatory arthritis Insomnia Medication reaction Right knee injury Seizures Strep pharyngitis Surgical History H/O repair of left rotator cuff 2014 Status post colonoscopy (11/05/21) Status post VNS (vagus nerve stimulator) placement Family History Other No pertinent family history Social History Smoking and tobacco status: former smoker Quit status (tobacco): has quit using tobacco Year quit tobacco: 04/20/22 Former quit date comment: smoked 0.5 PPD x 30 yrs Second hand smoke exposure: No Smoking risk assessment/counseling performed?: No Alcohol intake: never Lives independently: Yes Household members: significant other Housing: House service: No Current occupational status: disabled History of recent travel: No Current gender identity: Male Special edwige needs: No Other PFSH information: Supplemental PFSH Information: Adopted, no family history Vitals/I&O/Wt Last Vital Signs Temp 98.2 F 06/29/22 06:58 Pulse 118 H 06/29/22 08:14 Resp 20 H 06/29/22 08:06 BP 122/94 06/29/22 08:06 Pulse Ox 96 06/29/22 08:06 O2 Del Method 06/29/22 08:06 O2 Flow Rate 4 06/29/22 08:00 Weight last 48 hrs Weight 88.451 kg Physical Exam Narrative: General exam is no distress HEENT atraumatic normocephalic. Pupils equally round. Oropharynx clear Neck is supple no lymphadenopathy thyromegaly Cardiovascular tachycardic, no murmur Lungs clear but with diminished breath sounds at the bases Abdomen is soft, positive bowel sounds. No obvious organomegaly exam is deferred Extremities no cyanosis clubbing or edema, cap refill brisk Skin no rash Neuro no obvious focal deficits. Data 06/29/22 07:07 06/29/22 07:07 Other Labs: EKG demonstrates right axis deviation, sinus rhythm, tachycardia, poor R wave progression PT and PTT are normal ABG demonstrates a pH 7.42, PCO2 of 28, PO2 of 76 on 4 L LFTs are normal Troponin 68 at baseline Calcium, albumin are normal CTA of chest demonstrates extensive bilateral pulmonary emboli with concerns for right heart strain Venous duplex right DVT Chest x-ray mild cardiomegaly A&P Assessment and plan (1) Pulmonary embolism: Large clot burden pulmonary embolism found on CTA. DVT, mobile right peroneal vein I have just been notified he has a large thrombus in his right ventricle as well, with preserved EF and pulmonary hypertension. Right ventricle is somewhat hypokinetic. Cardiology recommended transferring case thrombectomy is needed. The emergency department physician is trying to arrange this. 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 (6) Diabetes: Hold metformin Sliding scale insulin Qualifiers: Diabetes mellitus type: type 2 Diabetes mellitus intermediate designer insulin use: without long-term use Diabetes mellitus complication status: without complication Qualified Code(s): E11.9 - Type 2 diabetes mellitus without complications Plan Other medical problems as outlined in past medical history Full code On heparin for DVT/PE Attestations Medical Necessity Statement*: Not applicable, transferring Coding Level of Care Code Acute Mixer Operator Hot Metal for [facility] Fw Diagnoses Pulmonary embolism I26.99 RV (right ventricular) mural thrombus I51.3 Pulmonary hypertension I27.20 Right leg DVT I82.401 Frontal lobe epilepsy G40.802 Diabetes E11.9 Diabetes mellitus type: type 2 Diabetes mellitus long-term insulin use: without intermediate designer use Diabetes mellitus complication status: without complication
[2022-06-29 09:32] LABS: Troponin 5 2HR 59.55 ng/L (0-15)
[2022-06-29 09:36] LABS: Troponin 5 2HR Delta -8.45 ABS# (0-10)
[2022-06-29] MEDS: sodium chloride 0.9% 1,000 ML 999 ML IV (09:44)
--- NOTE | 2022-06-29 09:54 | ECG_ITS ---
[facility] Test Date: 2022-06-29 Pat Name: Abad Hernandez Department: Room: Gender: Male Natural Science Manager: : 1970 Requested By: Duane Suresh Order Number: [id number] Burak MD: Albert Berman M.D. Measurements Intervals [place] Rate: 114 P: 66 GA: 178 QRS: 262 QRSD: 103 T: 20 QT: 320 QTc: 442 Interpretive Statements SINUS TACHYCARDIA POSSIBLE RIGHT VENTRICULAR HYPERTROPHY [SOME/ALL OF: PROMINENT R IN V1, LATE TRANSITION, RAD, LONA, SSS] INFERIOR MYOCARDIAL INFARCTION , OF INDETERMINATE AGE [40+ ms Q WAVE AND/OR ST/T ABNORMALITY IN II/aVF] ANTEROLATERAL MYOCARDIAL INFARCTION , OF INDETERMINATE AGE [40+ ms Q WAVE IN I/aVL/V3-V6] Compared to ECG 06/29/2022 07:11:20 No significant changes Electronically Signed On 06-29-2022 19:49:37 OSTOMY CARE NURSE by Albert Berman M.D. [id number]
[2022-06-29] MEDS: CLONazepam 0.5 mg Tablet 0.25 MG PO (10:24)
--- NOTE | 2022-06-29 13:02 | ECG_ITS ---
[facility] Test Date: 2022-06-29 Pat Name: Abad Hernandez Department: Room: Gender: Male Instrument Repair Supervisor: : 1970 Requested By: Dunae Suresh Order Number: [id number] Burak MD: Albert Berman M.D. Measurements Intervals [place] Rate: 110 P: 48 OR: 173 QRS: 265 QRSD: 98 T: 18 QT: 325 QTc: 441 Interpretive Statements SINUS TACHYCARDIA POSSIBLE RIGHT VENTRICULAR HYPERTROPHY [SOME/ALL OF: PROMINENT R IN V1, LATE TRANSITION, RAD, LONA, SSS] INFERIOR MYOCARDIAL INFARCTION , PROBABLY OLD [40+ ms Q WAVE AND/OR ST/T ABNORMALITY IN II/aVF] ANTEROLATERAL MYOCARDIAL INFARCTION , OF INDETERMINATE AGE [40+ ms Q WAVE IN I/aVL/V3-V6] Compared to ECG 06/29/2022 09:54:08 No significant changes Electronically Signed On 06-29-2022 19:49:27 PAEDODONTIST by Albert Berman M.D. [id number]
[2022-06-29 14:04] LABS: Partial Thromboplastin Time 57.8 SECONDS (23.9-36.7)
[2022-06-29 14:12] LABS: Troponin 5 6HR 54.36 ng/L (0-15)
[2022-06-29 14:35] LABS: SARS Covid-2 Antigen negative (Negative)
--- NOTE | 2022-06-29 14:42 | PC.NURSE ---
No change to Heparin infusion per protocol based off of 6hr PTT results.
== END 2022-06-29 17:38 | disposition short-term general hospital (02) ==
PROVIDERS: Emergency Provider Family Medicine; PCP Family Medicine
DX: I26.92 Saddle embolus of pulmonary artery without acute cor pulmonale (principal); I51.3 Intracardiac thrombosis, not elsewhere classified; E11.9 Type 2 diabetes mellitus without complications; G40.802 Other epilepsy, not intractable, without status epilepticus; I82.401 Acute embolism and thrombosis of unspecified deep veins of right lower extremity; I27.20 Pulmonary hypertension, unspecified
CPT/HCPCS: 36600; 71045; 71275; 80051; 80053; 82330; 82805; 84484; 85025; 85610; 85730; 87426; 93005; 93306; 93971; 94640; 96374; 99285; J1644; J7030; Q9967

== ENCOUNTER 2022-07-25 09:36 | Emergency (ER) | payer MEDICARE, MEDICAID, SELFPAY ==
--- NOTE | 2022-07-25 09:47 | XRR_ITS ---
PROCEDURE INFORMATION: Exam: XR Chest Exam date and time: 07/25/2022 9:53 AM Age: 52 years old Clinical indication: Shortness of breath; Patient HX: Patient has HX of pulmonary emboli 2 weeks prior; Additional info: Chest pain TECHNIQUE: Imaging protocol: Radiologic exam of the chest. Views: 1 view. COMPARISON: CR (CHEST, ) 06/29/2022 7:15 AM FINDINGS: Lungs: Unremarkable. No consolidation. Pleural spaces: Unremarkable. No pleural effusion. No pneumothorax. Heart/Mediastinum: Unremarkable. No cardiomegaly. Bones/joints: Unremarkable. A electronic device is present in the left anterior chest XR/XR chest 1V portable [id number] IMPRESSION: No acute findings. Electronic device left anterior chest
--- NOTE | 2022-07-25 09:48 | ECG_ITS ---
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 Measurements Intervals [place] Rate: 74 P: 0 [place]: 0 QRS: -66 QRSD: 96 T: -66 QT: 389 QTc: 432 Interpretive Statements Sinus RHYTHM with significant underlying baseline artifact LEFT AXIS DEVIATION [QRS AXIS < -30] LOW QRS VOLTAGE IN PRECORDIAL LEADS [QRS DEFLECTION < 1.0 mV IN CHEST LEADS] PATTERN CONSISTENT WITH PULMONARY DISEASE POSSIBLE INFERIOR MYOCARDIAL INFARCTION , OF INDETERMINATE AGE [30 ms Q WAVE IN II/aVF] INTERPRETATION BASED ON A DEFAULT AGE OF 40 YEARS Compared to ECG 06/29/2022 13:09:58 Left-axis deviation now present Low QRS voltage now present Sinus tachycardia no longer present Myocardial infarct finding still present Electronically Signed On 07-25-2022 14:27:30 BOARD CERTIFIED BEHAVIORAL ANALYST by Selvin Guillen M.D. [email or web address]/store/[id number] nehal
[2022-07-25 10:02] VITALS: BP 128/81; PULSE 70; RESP 18; TEMP 36.1; O2SAT 96
--- NOTE | 2022-07-25 10:04 | ECG_ITS ---
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 Measurements Intervals [place] Rate: 77 P: 68 MS: 205 QRS: -58 QRSD: 107 T: 9 QT: 346 QTc: 392 Interpretive Statements SINUS RHYTHM POSSIBLE ANTERIOR MYOCARDIAL INFARCTION , PROBABLY OLD [30 ms Q WAVE IN V3/V4, OR R < 0.2 mV IN V4] INFERIOR MYOCARDIAL INFARCTION , PROBABLY OLD [40+ ms Q WAVE AND/OR ST/T ABNORMALITY IN II/aVF] Compared to ECG 06/29/2022 13:09:58 Sinus tachycardia no longer present Atrial abnormality no longer present Myocardial infarct finding still present Electronically Signed On 07-25-2022 14:27:37 MECHANICAL UNIT REPAIRER by Selvin Guillen M.D. [email or web address]/[id number]
--- NOTE | 2022-07-25 10:17 | W.ED.CHESTPA ---
HPI - Chest Pain General: Chief Complaint: Chest Pain Stated Complaint: Pain in upper left of chest, N/V Time Seen by Provider: 07/25/22 09:45 History of Present Illness: Patient is a 52-year-old man the presents to the emergency department with complaints of left upper quadrant abdominal pain with nausea vomiting. Patient states symptoms began last week but worsened over the last 12 hours. Patient also notes the sensation of swelling in his left upper quadrant along with a rash. Patient denies any diarrhea or constipation. As he had a normal bowel movement today. Of note, his medical history includes a recent pulmonary embolism and ventricular thrombus. He was transferred to [place] and underwent a thrombectomy. He is now at home on Eliquis. He denies any recent chest pain or shortness of breath. Associated symptoms: Reports abdominal pain, nausea and vomiting; Deny dyspnea, fever(s) or palpitations Review of Systems General: Reports: 10 or more systems reviewed and unremarkable except in HPI and below Const: Reports: chills; Denies: fever(s), change in appetite, change in weight, fatigue or malaise Eyes: Denies: change in vision, eye discomfort, eye discharge or eye redness ENMT: Denies: throat pain, enlarged tonsils, odynophagia, hoarseness, ear or mastoid pain, ear discharge, change in hearing, tinnitus, nasal discharge, nasal congestion, post nasal drip or sinus pain Card: Denies: chest pain, palpitations, irregular heart rhythm, edema, dyspnea on exertion, orthopnea or leg pain with exertion Resp: Denies: dyspnea, productive cough, non-productive cough, wheezing, stridor or chest congestion GI: Reports: abdominal pain, nausea and vomiting; Denies: dysphagia, diarrhea, constipation, bloating, GI cramping or hematochezia : Denies: flank pain, dysuria, urinary frequency, urinary urgency, urinary hesitancy, oliguria or hematuria Musc: Denies: neck pain, back pain, extremity pain, joint pain, joint swelling, joint redness, joint warmth or muscle weakness Skin/Breast: Denies: rash, pruritus, erythema, photosensitivity or new lesions Neuro: Denies: headache(s), numbness in extremities, weakness in extremities, sensory changes, lack of coordination, difficulty walking, frequent falls, dizziness, confusion, Slurred speech present, difficulty communicating thoughts, seizure-like activity or involuntary movements Endo: Denies: polyuria, polydipsia or tired all the time Samm/Lymph: Denies: easy bruising or easy bleeding PFSH ED PFSH: Medical History Acute pharyngitis Axial spondyloarthritis Cellulitis Contact dermatitis Diabetes Facial droop Generalized epilepsy, intractable Headache High risk medication use Hyperlipidemia Immunization counseling Inflammatory arthritis Insomnia Medication reaction Right knee injury Seizures Strep pharyngitis Surgical History H/O repair of left rotator cuff 2013 Status post colonoscopy (11/05/21) Status post VNS (vagus nerve stimulator) placement Family History Other No pertinent family history Social History Smoking and tobacco status: former smoker Quit status (tobacco): has quit using tobacco Year quit tobacco: 04/20/22 Former quit date comment: smoked 0.5 PPD x 30 yrs Second hand smoke exposure: No Smoking risk assessment/counseling performed?: No Alcohol intake: never Lives independently: Yes Household members: significant other Housing: House service: No Current occupational status: disabled History of recent travel: No Current gender identity: Male Special edwige needs: No Physical Exam Narrative: EXAM NARRATIVE: Patient is a healthy appearing adult male in no acute distress. Nontoxic-appearing. Cooperative. Alert Const: GENERAL APPEARANCE: cooperative, comfortable, well kempt and well hydrated NUTRITIONAL APPEARANCE: obese ORIENTATION/CONSCIOUSNESS: Yes awake, Yes oriented to person, Yes oriented to place and Yes oriented to time HENMT: COMMON NORMALS: normocephalic and atraumatic HEAD & SCALP: normocephalic and atraumatic FACE & SINUS: normal facial exam and face symmetric GENERAL EAR: hearing grossly impaired Neck/C-Spine: COMMON NORMALS: no JVD GENERAL: Yes normal visual inspection and Yes trachea midline CERVICAL SPINE: Yes cervical ROM normal Lymph: LYMPHATIC: no lymphadenopathy noted Chest: CHEST: Yes Symmetrical chest wall rise Resp: COMMON NORMALS: No retractions and clear to auscultation bilaterally (Patient is tachypneic) EFFORT & INSPECTION: Yes able to speak in complete sentences, Yes symmetric chest movement and Yes tachypneic AUSCULTATION: clear to auscultation bilaterally (Patient is tachypneic) Cardio: COMMON NORMALS: no JVD, regular rate, regular rhythm and Peripheral pulses 2+ throughout RATE: regular rate RHYTHM: regular rhythm PERIPHERAL PULSES: Peripheral pulses 2+ throughout GI: COMMON NORMALS: Soft to palpation INSPECTION: Yes normal to inspection and Yes other (Rash to abdomen) AUSCULTATION: Yes normoactive bowel sounds PALPATION: Yes Soft to palpation and Yes Tenderness to palpation present (GI) Details: LUQ (Without rebound tenderness.) Neuro: SENSORIUM/ORIENTATION: Yes oriented to person, Yes oriented to place and Yes oriented to time Psych: APPEARANCE: Yes well kempt Course Vital Signs: Vital signs: Vital Signs Temperature 97.7 F 07/25/22 14:40 Pulse Rate 78 07/25/22 14:40 Respiratory Rate 17 07/25/22 14:40 Blood Pressure 132/83 07/25/22 14:40 Pulse Oximetry 99 07/25/22 14:40 Oxygen Delivery Me thod 07/25/22 10:02 MDM - Chest Pain Medical Decision Making Patient is in the emergency department today for left upper quadrant abdominal pain, nausea vomiting. Onset of symptoms last week but worse in the last 12 hours. Differential diagnoses include: Influenza, COVID, pneumonia, ACS, ischemic bowel Patient has undergone EKG here in the emergency department at 1014 and 1144. EKG both reveals sinus rhythm with ventricular rate in the 70s. No ectopy, ST elevation or abnormal T wave inversion. Patient underwent XR imaging of the chest which revealed no infiltrates or consolidations. No cardiomegaly. VNS present. Laboratory study reveal no leukocytosis, anemias, electrolyte disturbances, organ dysfunction, or heart failure. She will troponin is 20. This is really unchanged from baseline. I obtained a 2-hour delta of which was 0.27. Patient has not had any chest pain or shortness of breath. Reviewed these laboratory findings along with the other laboratory findings and CT abdomen and pelvis. CT abdomen and pelvis with contrast completed and reveals no acute findings.Patient reports he is feeling better and would like to discharge home. I have warned him about potential worrisome signs to return to the emergency department. Patient is agreeable At this time no further diagnostics are warranted. Patient is going to discharge home and return to the emergency department for new concerning or worsening symptoms. Lab Data 07/25/22 10:20 07/25/22 10:20 Radiology Impressions Chest X-Ray 07/25/22 09:47 IMPRESSION: No acute findings. Electronic device left anterior chest Abdomen/Pelvis CT 07/25/22 10:27 IMPRESSION: Negative examination No acute findings. Laboratory Results WBC 6.8 10^3/uL (4.0-10.0) 07/25/22 10:20 RBC 5.08 10^6/uL (4.1-5.3) 07/25/22 10:20 Hgb 14.2 g/dL (11.7-16.6) 07/25/22 10:20 Hct 45.3 % (42.0-52.0) 07/25/22 10:20 MCV 89.2 fl (80-94) 07/25/22 10:20 MCH 28.0 pg (28.0-34.0) 07/25/22 10:20 MCHC 31.3 g/dL (30.0-36.0) 07/25/22 10:20 RDW 12.8 % (12.1-15.1) 07/25/22 10:20 Plt Count 230 10^3/cmm (130-400) 07/25/22 10:20 MPV 11.2 fL (7.4-10.4) H 07/25/22 10:20 Neut % (Auto) 62.5 % 07/25/22 10:20 Lymph % (Auto) 25.8 % 07/25/22 10:20 [place] % (Auto) 5.0 % 07/25/22 10:20 Eos % (Auto) 5.4 % 07/25/22 10:20 Baso % (Auto) 1.2 % 07/25/22 10:20 Neut # (Auto) 4.24 10^3/uL (1.8-7.7) 07/25/22 10:20 Lymph # (Auto) 1.8 10^3/uL (0.8-4.8) 07/25/22 10:20 [place] # (Auto) 0.3 10^3/uL (0.2-0.9) 07/25/22 10:20 Eos # (Auto) 0.4 10^3/uL (0.0-0.8) 07/25/22 10:20 Baso # (Auto) 0.1 10^3/uL (0.0-0.1) 07/25/22 10:20 Nucleated RBC % (auto) 0 % 07/25/22 10:20 Nucleated RBCs # 0.0 /100WBC 07/25/22 10:20 Sodium 138 mmol/L (136-145) 07/25/22 10:20 Potassium 3.9 mmol/L (3.5-5.1) 07/25/22 10:20 Chloride 101 mmol/L (98-107) 07/25/22 10:20 Carbon Dioxide 24 mmol/L (22-29) 07/25/22 10:20 Anion Gap 16.9 (5-19) 07/25/22 10:20 BUN 29 mg/dL (6-20) H 07/25/22 10:20 Creatinine 1.0 mg/dL (0.7-1.2) 07/25/22 10:20 GFR Calculation 78.2 mL/min (90-130) L 07/25/22 10:20 Glucose 178 mg/dL (65-115) H 07/25/22 10:20 Calculated Osmolality 296 mOsm/kg (285-295) H 07/25/22 10:20 Calcium 9.3 mg/dL (8.5-10.5) 07/25/22 10:20 Total Bilirubin 0.3 mg/dL (0.15-1.2) 07/25/22 10:20 AST 24 U/L (0-40) 07/25/22 10:20 ALT 33 U/L (0-41) 07/25/22 10:20 Alkaline Phosphatase 65 U/L (40-130) 07/25/22 10:20 Troponin T Baseline 22 ng/L (0-15) H 07/25/22 10:20 Troponin T 120 Minute 22.27 ng/L (0-15) H 07/25/22 12:20 Delta Troponin T 0.27 ABS# (0-10) 07/25/22 12:20 NT-Pro-B Natriuret Pep 29 pg/mL (0-125) 07/25/22 10:20 Total Protein 7.6 g/dL (6.6-8.7) 07/25/22 10:20 Albumin 4.6 g/dL (3.5-5.2) 07/25/22 10:20 Globulin 3.0 g/dL (1.3-4.6) 07/25/22 10:20 Influenza Type A Ag negative (Negative) 07/25/22 12:40 Influenza Type B Ag negative (Negative) 07/25/22 12:40 SARS-CoV-2 Ag (Rapid) Negative (Negative) 07/25/22 12:40 Discharge Plan Discharge Patient Disposition: Home Clinical Impression: Abdominal pain, Elevated troponin Prescriptions: No Action (DME) Diabetic shoes See Rx Instructions .Route .MEDSUPPLY Qty: 1 0RF Rx Instructions: As directed prednisone 10 mg tablet See Rx Instructions PO .COMPLEX PRN (Reason: joint pain) Qty: 30 1RF Rx Instructions: take 1 tab daily for 3-7 days prn joint pain flare PO PRN; zonisamide [Zonegran] 100 mg capsule 600 mg PO DAILY Qty: 540 5RF lorazepam [Lorazepam Intensol] 2 mg/mL concentrate 2 mg sublingual DAILY PRN (Reason: anxiety) Qty: 30 1RF Rx Instructions: Take one mL at onset of generalized seizure (DME) blood-glucose meter [Accu-Chek Magali Plus Meter] Misc See Rx Instructions .ROUTE .MEDSUPPLY Qty: 1 0RF Rx Instructions: As directed (DME) Accu-Chek Magali Plus test strp Strip See Rx Instructions .ROUTE .MEDSUPPLY Qty: 100 3RF Rx Instructions: three times a day Cosentyx Pen 150 mg/mL pen injector 300 mg SUBCUT .H5Wndyl Qty: 2 4RF (DME) accucheck meter See Rx Instructions .Route .MEDSUPPLY Qty: 1 0RF Rx Instructions: As directed (DME) [employer] lancets and strips See Rx Instructions .Route .MEDSUPPLY Qty: 306 0RF Rx Instructions: As directed ketoconazole 2 % shampoo 1 applic topical .COMPLEX Qty: 120 6RF Rx Instructions: 1 applic topically .2x weekly; Lather into scalp 2-3 weekly. Allow to sit on scalp for 5 minutes before rinsing. hydrocortisone 2.5 % ointment 1 applic topical BID Qty: 454 0RF Rx Instructions: Apply twice a day as needed for flares. Apply no more than two weeks per month. metformin 1,000 mg tablet 1,000 mg PO BID Qty: 60 3RF Rx Instructions: Take 1 tablet by mouth daily. clobetasol 0.05 % cream 1 applic topical BID Qty: 45 2RF clonazepam [Klonopin] 0.5 mg tablet 0.5 mg PO DAILY PRN (Reason: anxiety) Qty: 30 3RF rosuvastatin 20 mg tablet 20 mg PO DAILY Qty: 90 0RF triamcinolone acetonide 0.1 % ointment 1 applic topical BID Qty: 80 1RF Rx Instructions: apply to affected areas twice daily for no more than 2 weeks. not for face apixaban 5 mg tablet 10 mg PO BID Qty: 120 2RF metoprolol tartrate 25 mg tablet 12.5 mg PO DAILY Rx Instructions: Take 1/2 tablet by mouth daily. fenofibrate 160 mg tablet 160 mg PO DAILY Rx Instructions: Take 1 tablet by mouth daily. Belsomra 20 mg tablet 20 mg PO BEDTIME Discharge Orders: Discharge ED (Routine); Ordered 07/25/22 Ordered By: Jesus Leyva Referrals: Sharon Carter MD [Primary Care Provider] - Discharge Diet: Advance as tolerated Discharge Activity: Resume usual activity Patient Instructions: Abdominal Pain (ED), Pain Management Activity Restrictions/Additional Instructions: Please return to the emergency department for new, concerning, worsening symptoms If you develop any chest pain, shortness of breath, increased abdominal pain or if the abdominal pain does not resolve, you will need to be reevaluated. This can be done at your primary care office or here in the emergency department Please monitor for new symptoms like fever, diarrhea bloody stools, bloody vomit Coding Level of Care Code ED Assembler Installer Structures for Pinky Fwharinder Exam Comprehensive
[2022-07-25] MEDS: sodium chloride 0.9% 1,000 ML 999 ML IV (10:23)
--- NOTE | 2022-07-25 10:27 | CTR_ITS ---
PROCEDURE INFORMATION: Exam: CT Abdomen And Pelvis With Contrast Exam date and time: 07/25/2022 11:00 AM Age: 52 years old Clinical indication: Abdominal pain; Localized; Left upper quadrant (luq); Prior surgery; Surgery type: Vns; Additional info: Left upper quadrant abdominal pain TECHNIQUE: Imaging protocol: Computed tomography of the abdomen and pelvis with contrast. Radiation optimization: All CT scans at this facility use at least one of these dose optimization techniques: automated exposure control; mA and/or kV adjustment per patient size (includes targeted exams where dose is matched to clinical indication); or iterative reconstruction. Contrast material: OMNI 350; Contrast volume: 100 ml; Contrast route: INTRAVENOUS (IV); COMPARISON: CR XR pelvis 1-2V* [id number] 05/05/2021 11:11 AM RADIATION DOSE METRICS: Total DLP (mGy-cm): 822.87 FINDINGS: Liver: Normal. No mass. Gallbladder and bile ducts: Normal. No calcified stones. No ductal dilation. Pancreas: Normal. No ductal dilation. Spleen: Normal. No splenomegaly. Adrenal glands: Normal. No mass. Kidneys and ureters: Normal. No hydronephrosis. Stomach and bowel: Unremarkable. No obstruction. No mucosal thickening. Appendix: No evidence of appendicitis. Intraperitoneal space: Unremarkable. No free air. No significant fluid collection. Vasculature: Unremarkable. No abdominal aortic aneurysm. Lymph nodes: Unremarkable. No enlarged lymph nodes. Urinary bladder: Unremarkable as visualized. Reproductive: Unremarkable as visualized. Bones/joints: Osteoarthritis. No acute fracture. Soft tissues: Unremarkable. CT/CT abdomen pelvis w con* [id number] IMPRESSION: Negative examination No acute findings.
[2022-07-25 10:29] LABS: Basophils # 0.1 10^3/uL (0.0-0.1); Basophils % 1.2 %; Eosinophils # 0.4 10^3/uL (0.0-0.8); Eosinophils % 5.4 %; Hematocrit 45.3 % (42.0-52.0); Hemoglobin 14.2 g/dL (11.7-16.6); Lymphocytes # 1.8 10^3/uL (0.8-4.8); Lymphocytes % 25.8 %; Mean Corpuscular HGB Conc 31.3 g/dL (30.0-36.0); Mean Corpuscular Volume 89.2 fl (80-94); Mean Platelet Volume 11.2 fL (7.4-10.4); Monocytes # 0.3 10^3/uL (0.2-0.9); Neutrophils # 4.24 10^3/uL (1.8-7.7); Neutrophils % 62.5 %; Nucleated Red Blood Cells % 0 %; Platelet Count 230 10^3/cmm (130-400); Red Blood Count 5.08 10^6/uL (4.1-5.3); Red Cell Distribution Width 12.8 % (12.1-15.1); White Blood Count 6.8 10^3/uL (4.0-10.0)
[2022-07-25 10:31] VITALS: BP 127/77; PULSE 98; O2SAT 99
[2022-07-25 10:46] LABS: Troponin(5th) Baseline 22 ng/L (0-15)
[2022-07-25 10:53] LABS: Alanine Aminotransferase 33 U/L (0-41); Albumin Level 4.6 g/dL (3.5-5.2); Alkaline Phosphatase 65 U/L (40-130); Anion Gap 16.9 (5-19); Aspartate Amino Transferase 24 U/L (0-40); Blood Urea Nitrogen 29 mg/dL (6-20); Calcium 9.3 mg/dL (8.5-10.5); Carbon Dioxide 24 mmol/L (22-29); Chloride 101 mmol/L (98-107); Glomerular Filtration Rate 78.2 mL/min (90-130); Glucose 178 mg/dL (65-115); NT Pro B Type Natriuretic Pept 29 pg/mL (0-125); Osmolality Calculated 296 mOsm/kg (285-295); Potassium 3.9 mmol/L (3.5-5.1); Sodium 138 mmol/L (136-145); Total Bilirubin 0.3 mg/dL (0.15-1.2); Total Protein 7.6 g/dL (6.6-8.7)
[2022-07-25] MEDS: iohexol 350 mg/mL 500 mL Btl (per mL) IV (11:15)
--- NOTE | 2022-07-25 11:48 | ECG_ITS ---
[facility] Test Date: 2022-07-25 Pat Name: Abad Hernandez Department: Room: Gender: Male Key Account Executive: : 1970 Requested By: Jesus Mclaughlin Order Number: [id number] Burak MD: Selvin Guillen M.D. Measurements Intervals [place] Rate: 72 P: 47 [place]: 221 QRS: -56 QRSD: 112 T: 0 QT: 371 QTc: 406 Interpretive Statements SINUS RHYTHM WITH FIRST DEGREE AV BLOCK POSSIBLE ANTERIOR MYOCARDIAL INFARCTION , OF INDETERMINATE AGE [30 ms Q WAVE IN V3/V4, OR R < 0.2 mV IN V4] INFERIOR MYOCARDIAL INFARCTION , PROBABLY OLD [40+ ms Q WAVE AND/OR ST/T ABNORMALITY IN II/aVF] Compared to ECG 07/25/2022 10:14:00 First degree AV block now present Myocardial infarct finding still present Electronically Signed On 07-25-2022 14:29:11 RESTORATION OFFICER by Selvin Guillen M.D. [id number]
[2022-07-25 12:47] LABS: Troponin 5 2HR 22.27 ng/L (0-15)
[2022-07-25 13:02] LABS: Troponin 5 2HR Delta 0.27 ABS# (0-10)
[2022-07-25 13:31] LABS: Influenza A by IFA negative (Negative); Influenza B by IFA negative (Negative)
[2022-07-25 13:36] LABS: SARS Covid-2 Antigen Negative (Negative)
[2022-07-25 14:40] VITALS: BP 132/83; PULSE 78; RESP 17; TEMP 36.5; O2SAT 99
== END 2022-07-25 14:40 | disposition home or self-care (01) ==
PROVIDERS: Emergency Provider Nurse Practitioner; PCP Family Medicine
DX: R10.9 Unspecified abdominal pain (principal); R77.8 Other specified abnormalities of plasma proteins; Z79.84 Long term (current) use of oral hypoglycemic drugs; Z20.822 Contact with and (suspected) exposure to COVID-19; E11.9 Type 2 diabetes mellitus without complications; E78.5 Hyperlipidemia, unspecified; Z87.891 Personal history of nicotine dependence; I26.92 Saddle embolus of pulmonary artery without acute cor pulmonale
CPT/HCPCS: 36415; 71045; 74177; 80053; 83880; 84484; 85025; 87426; 87804; 93005; 99285; J7030; Q9967

== ENCOUNTER → 2022-08-24 08:35 | Outpatient (BNVA) | payer MEDICARE, MEDICAID, SELFPAY | PROVIDERS: PCP Family Medicine; Visit Provider Internal Medicine Pulmonary Disease | DX: I27.20 Pulmonary hypertension, unspecified (principal); Z86.711 Personal history of pulmonary embolism; Z87.891 Personal history of nicotine dependence; Z79.01 Long term (current) use of anticoagulants; M45.9 Ankylosing spondylitis of unspecified sites in spine; R06.09 Other forms of dyspnea | CPT/HCPCS: 99204 ==

== ENCOUNTER → 2022-08-25 14:16 | Outpatient (BNVA) | payer MEDICARE, MEDICAID, SELFPAY | PROVIDERS: PCP Family Medicine; Visit Provider Internal Medicine | DX: I26.92 Saddle embolus of pulmonary artery without acute cor pulmonale (principal); I82.401 Acute embolism and thrombosis of unspecified deep veins of right lower extremity; I51.3 Intracardiac thrombosis, not elsewhere classified; I27.20 Pulmonary hypertension, unspecified; E78.2 Mixed hyperlipidemia; E11.9 Type 2 diabetes mellitus without complications; Z87.891 Personal history of nicotine dependence; Z79.01 Long term (current) use of anticoagulants; Z79.84 Long term (current) use of oral hypoglycemic drugs | CPT/HCPCS: 99204 ==

== ENCOUNTER 2022-09-10 08:07 | Outpatient (CLI) | payer MEDICARE, MEDICAID, SELFPAY ==
[2022-09-10 08:15] VITALS: BP 134/83; BP 148/94
[2022-09-10 08:35] VITALS: PULSE 76; RESP 18; O2SAT 98
[2022-09-10] MEDS: albuterol 2.5 mg/3 mL Neb INHALATION (08:35)
[2022-09-10 08:40] VITALS: PULSE 83
== END 2022-09-10 08:08 | disposition home or self-care (01) ==
PROVIDERS: PCP Family Medicine; Visit Provider Internal Medicine Pulmonary Disease
DX: I26.99 Other pulmonary embolism without acute cor pulmonale (principal); I27.20 Pulmonary hypertension, unspecified; F17.200 Nicotine dependence, unspecified, uncomplicated
CPT/HCPCS: 94060; 94618; 94726; 94729; J7613

== ENCOUNTER → 2022-09-14 09:40 | Outpatient (BNVA) | payer MEDICARE, MEDICAID, SELFPAY | PROVIDERS: PCP Family Medicine; Visit Provider Specialist | DX: I27.20 Pulmonary hypertension, unspecified (principal); I51.3 Intracardiac thrombosis, not elsewhere classified; I26.99 Other pulmonary embolism without acute cor pulmonale; Z79.01 Long term (current) use of anticoagulants; G25.0 Essential tremor; Z96.82 Presence of neurostimulator; Z45.42 Encounter for adjustment and management of neurostimulator; G40.802 Other epilepsy, not intractable, without status epilepticus | CPT/HCPCS: 95970; 99214 ==

== ENCOUNTER 2022-09-16 06:33 | Outpatient (CLI) | payer MEDICARE, MEDICAID, SELFPAY ==
--- NOTE | 2022-09-16 06:30 | CT_ITS ---
WS: [id number] CT RIGHT KNEE, NONCONTRAST. HISTORY: RIGHT knee pain, sprain. Technique: All CT scans at [facility] use at least one of these dose optimization techniques: automated exposure control; mA and/or kV adjustment per patient size (includes targeted exams where dose is matched to clinical indication); or iterative reconstruction. DLP: 348.12 mGy.cm COMPARISON: Prior radiographs 01/30/2022. No acute or healed fractures identified. Very minimal narrowing of the lateral compartment. No signif icant osteophytosis. No significant joint effusion. No loose bodies. No osteochondral lesions. Muscles surrounding the knee are well formed. No soft tissue mass or calcification. CT/CT knee RT wo con* [id number] IMPRESSION: 1. No acute or healed fracture. 2. Very minimal narrowing of the lateral joint space. 3. No joint effusion or loose body. 4. If pain continues MRI RIGHT knee may be of benefit.
== END 2022-09-16 06:34 | disposition home or self-care (01) ==
LOC: RAD 06:35
PROVIDERS: PCP Family Medicine; Visit Provider Internal Medicine Rheumatology
DX: S83.8X9A Sprain of other specified parts of unspecified knee, initial encounter (principal); X58.XXXA Exposure to other specified factors, initial encounter
CPT/HCPCS: 73700

== ENCOUNTER → 2022-09-17 13:00 | Outpatient (BNVA) | payer MEDICARE, MEDICAID, SELFPAY | PROVIDERS: PCP Family Medicine; Visit Provider Internal Medicine Rheumatology | DX: M46.90 Unspecified inflammatory spondylopathy, site unspecified (principal); Z79.899 Other long term (current) drug therapy; Z71.85 Encounter for immunization safety counseling; R29.898 Other symptoms and signs involving the musculoskeletal system | CPT/HCPCS: 36415; 80076; 82565; 85025; 86140; 99214 ==

== ENCOUNTER 2022-09-18 06:00 | Outpatient (RCR) | payer MEDICARE, MEDICAID, SELFPAY | END 2022-10-09 23:59 | disposition home or self-care (01) | LOC: TPT 06:00 | PROVIDERS: PCP Family Medicine; Visit Provider Internal Medicine Rheumatology | DX: M17.11 Unilateral primary osteoarthritis, right knee (principal) | CPT/HCPCS: 97162 ==

== ENCOUNTER 2022-10-10 06:00 | Outpatient (RCR) | payer MEDICARE, MEDICAID, SELFPAY | END 2022-11-08 23:59 | disposition home or self-care (01) | LOC: TPT 06:00 | PROVIDERS: PCP Family Medicine; Visit Provider Internal Medicine Rheumatology | DX: M17.11 Unilateral primary osteoarthritis, right knee (principal) | CPT/HCPCS: 97110 ==

== ENCOUNTER → 2022-10-14 11:59 | Outpatient (BNVA) | payer MEDICARE, MEDICAID, SELFPAY | PROVIDERS: PCP Family Medicine; Visit Provider Internal Medicine Pulmonary Disease | DX: R06.02 Shortness of breath (principal); Z79.899 Other long term (current) drug therapy | CPT/HCPCS: 82785; 86003 ==

== ENCOUNTER 2022-11-09 06:00 | Outpatient (RCR) | payer MEDICARE, MEDICAID, SELFPAY | END 2022-11-25 23:59 | disposition home or self-care (01) | LOC: TPT 06:00 | PROVIDERS: PCP Family Medicine; Visit Provider Internal Medicine Rheumatology | DX: M17.11 Unilateral primary osteoarthritis, right knee (principal); I26.92 Saddle embolus of pulmonary artery without acute cor pulmonale; R00.2 Palpitations; R07.89 Other chest pain; Z87.891 Personal history of nicotine dependence; E78.2 Mixed hyperlipidemia; E11.9 Type 2 diabetes mellitus without complications; Z79.84 Long term (current) use of oral hypoglycemic drugs | CPT/HCPCS: 97110; 99214 ==

== ENCOUNTER → 2022-11-09 13:57 | Outpatient (BNVA) | payer MEDICARE, MEDICAID, SELFPAY | PROVIDERS: PCP Family Medicine; Visit Provider Internal Medicine | DX: R00.2 Palpitations (principal); R00.0 Tachycardia, unspecified; I49.1 Atrial premature depolarization; I49.3 Ventricular premature depolarization | CPT/HCPCS: 93270 ==

== ENCOUNTER → 2022-11-12 10:40 | Outpatient (BNVA) | payer MEDICARE, MEDICAID, SELFPAY | PROVIDERS: PCP Family Medicine; Visit Provider Family Medicine | DX: Z00.00 Encounter for general adult medical examination without abnormal findings (principal); E11.9 Type 2 diabetes mellitus without complications; E78.5 Hyperlipidemia, unspecified; G25.0 Essential tremor; I27.20 Pulmonary hypertension, unspecified; Z12.5 Encounter for screening for malignant neoplasm of prostate; E11.8 Type 2 diabetes mellitus with unspecified complications | CPT/HCPCS: 80053; 80061; 83036; 84443; G0103 ==

== ENCOUNTER → 2022-12-17 13:13 | Outpatient (BNVA) | payer MEDICARE, MEDICAID, SELFPAY | PROVIDERS: PCP Family Medicine; Visit Provider Internal Medicine Rheumatology | DX: Z79.899 Other long term (current) drug therapy (principal); M46.90 Unspecified inflammatory spondylopathy, site unspecified; Z71.85 Encounter for immunization safety counseling; S89.91XA Unspecified injury of right lower leg, initial encounter; X58.XXXA Exposure to other specified factors, initial encounter | CPT/HCPCS: 99214 ==

== ENCOUNTER 2022-12-29 14:51 | Emergency (ER) | payer MEDICARE, MEDICAID, SELFPAY ==
[2022-12-29 14:53] VITALS: BP 145/75; PULSE 74; TEMP 36.8; O2SAT 97; BMI 28.8
--- NOTE | 2022-12-29 15:04 | XR_ITS ---
WS: [id number] EXAMINATION: XR chest 1V portable [id number] REASON FOR EXAM: dyspnea/cough COMPARISON: 07/25/2022 ORDER DATE: 12/29/2022 3:21 PM TECHNIQUE: A single, portable frontal chest x-ray was obtained. X-RAY FINDINGS: The lungs are clear. Pleural spaces are clear. No pleural effusions or pneumothorax. Cardiomediastinal silhouette is normal. No evidence for pulmonary edema. Soft tissue and osseous structures are unremarkable. Battery pack for vagal stimulation on the left is located in the left infraclavicular region. XR/XR chest 1V portable [id number] IMPRESSION: Unremarkable frontal portable chest x-ray.
--- NOTE | 2022-12-29 15:05 | ECG_ITS ---
[facility] Test Date: 2022-12-29 Pat Name: Abad Hernandez Department: Room: Gender: Male Crime Scene Evidence Technician: : 1970 Requested By: Duane Suresh Order Number: [id number] Reading MD: Chery Hoffmann M.D. Measurements Intervals [place] Rate: 66 P: 26 [place]: 177 QRS: -49 QRSD: 92 T: -11 QT: 394 QTc: 413 Interpretive Statements SINUS RHYTHM LOW QRS VOLTAGE IN PRECORDIAL LEADS [QRS DEFLECTION < 1.0 mV IN CHEST LEADS] PATTERN CONSISTENT WITH PULMONARY DISEASE INFERIOR MYOCARDIAL INFARCTION , PROBABLY OLD [40+ ms Q WAVE AND/OR ST/T ABNORMALITY IN II/aVF] Compared to ECG 07/25/2022 11:44:19 Low QRS voltage now present First degree AV block no longer present Myocardial infarct finding still present Electronically Signed On 12-29-2022 16:20:36 CDT by Chery Hoffmann M.D. [id number]
--- NOTE | 2022-12-29 15:06 | ED_ITS ---
Documented by User: Duane Damon DO 12/31/22 06:15 HPI - Headache General: Chief Complaint: Headache Stated Complaint: Headache x3 Time Seen by Provider: 12/29/22 15:01 Source: patient Mode of arrival: ambulatory History of Present Illness: 52-year-old male presents emergency room from one of the outlying clinics with complaint of chest pain. He also has had headache for the last 3 days. He has been somewhat nauseous no vomiting. He does have a history of PE and is currently on apixaban no recent head trauma. No known history of coronary disease he has previously had episodes of chest pain he was supposed to be seeing cardiology for an evaluation but has not yet had it completed. He is a type II diabetic and is a former smoker as well. MD elicited complaint: headache Onset (ago): day(s) (3) Exacerbating factors: none Relieving factors: ice packs Associated symptoms: Reports chest pain; Deny confusion, cough, diaphoresis, eye pain, eye redness, fever(s), lightheadedness, loss of vision, malaise, nausea, neck stiffness, numbness, paresthesias, photophobia, pre-syncope, rash, seizures, short of breath, sound sensitivity, syncope, vomiting or weakness Treatments prior to arrival: none Review of Systems Const: Denies: fever(s), chills, malaise or diaphoresis ENMT: Denies: throat pain, ear or mastoid pain, nasal discharge or nasal congestion Card: Reports: chest pain; Denies: palpitations, irregular heart rhythm, edema, swelling of feet/ankles, lightheadedness, syncope or pre-syncope Resp: Denies: dyspnea, productive cough or non-productive cough GI: Reports: abdominal pain; Denies: nausea or vomiting : Denies: flank pain, dysuria, urinary frequency or urinary urgency Musc: Denies: neck pain or back pain Skin/Breast: Denies: rash Neuro: Denies: confusion PFSH ED PFSH: Medical History Acute pharyngitis Axial spondyloarthritis Cellulitis Contact dermatitis Diabetes Facial droop Generalized epilepsy, intractable Headache High risk medication use Hyperlipidemia Immunization counseling Inflammatory arthritis Insomnia Medication reaction Right knee injury Seizures Strep pharyngitis Surgical History H/O repair of left rotator cuff 2014 Status post colonoscopy (11/05/21) Status post VNS (vagus nerve stimulator) placement Family History Other No pertinent family history Social History Smoking and tobacco status: former smoker Quit status (tobacco): has quit using tobacco Year quit tobacco: 04/20/22 Former quit date comment: smoked 0.5 PPD x 30 yrs Second hand smoke exposure: No Smoking risk assessment/counseling performed?: No Alcohol intake: never Substance/Drug Use: never Lives independently: Yes Household members: significant other Housing: House service: No Current occupational status: disabled Current gender identity: Male Special edwige needs: No Physical Exam Const: GENERAL APPEARANCE: cooperative and comfortable ORIENTATION/CONSCIOUSNESS: Yes awake, Yes oriented to person, Yes oriented to place and Yes oriented to time HENMT: COMMON NORMALS: normocephalic, atraumatic and hearing grossly normal bilaterally HEAD & SCALP: normocephalic and atraumatic Eye: DIRECT OPHTHALMOSCOPY: No photophobia Resp: COMMON NORMALS: normal respiratory effort, No retractions, No use of accessory muscles and clear to auscultation bilaterally AUSCULTATION: clear to auscultation bilaterally Cardio: COMMON NORMALS: regular rate, regular rhythm and No murmurs present (Cardio) RATE: regular rate RHYTHM: regular rhythm GI: COMMON NORMALS: Soft to palpation and No hepatosplenomegaly present AUSCULTATION: Yes normoactive bowel sounds PALPATION: Yes Soft to palpation, No Tenderness to palpation present (GI), No Guarding due to palpation present (GI) and Yes No hepatosplenomegaly present Extremity: COMMON NORMALS: normal to inspection, capillary refill normal, no clubbing, cyanosis or edema, no calf tenderness and no pedal edema Neuro: SENSORIUM/ORIENTATION: Yes oriented to person, Yes oriented to place and Yes oriented to time OTHER: Neurologically intact no focal neurologic deficits are noted. Skin: COMMON NORMALS: no rashes or lesions noted GENERAL SKIN EXAM: no rashes or lesions noted Course Vital Signs: Vital signs: Vital Signs Temperature 98.3 F 12/29/22 14:53 Pulse Rate 72 12/29/22 19:14 Respiratory Rate 18 12/29/22 19:14 Blood Pressure 113/71 12/29/22 19:14 Pulse Oximetry 98 12/29/22 19:14 Oxygen Delivery Me thod Room Air 12/29/22 18:50 MDM - Headache Medical Decision Making Patient complaining of headache for last 2 to 3 days is on apixaban also complaining of chest pain. Second troponin pending. CT head negative. Care signed out to Dr. Verduzco at change of shift. See final notes for diagnosis and disposition. Patient presents with a headache going on for last 2 to 3 days he has no signs of meningitis or subarachnoid hemorrhage is not the worst headache of his life head CT here is normal headache resolved with Reglan Benadryl he also had some chest pain his troponins here are normal he is stable for discharge he is to follow-up with PCP and return if worsening. Lab Data 12/29/22 15:20 12/29/22 15:20 Radiology Impressions Chest X-Ray 12/29/22 15:04 IMPRESSION: Unremarkable frontal portable chest x-ray. Head CT 12/29/22 15:15 IMPRESSION: 1. No evidence of intracranial hemorrhage or mass effect. 2. Minimal periventricular small vessel changes. No significant parenchymal volume loss. 3. No acute intracranial findings. Laboratory Results WBC 7.4 10^3/uL (4.0-10.0) 12/29/22 15:20 RBC 4.78 10^6/uL (4.1-5.3) 12/29/22 15:20 Hgb 13.7 g/dL (11.7-16.6) 12/29/22 15:20 Hct 41.8 % (42.0-52.0) L 12/29/22 15:20 MCV 87.4 fl (80-94) 12/29/22 15:20 MCH 28.7 pg (28.0-34.0) 12/29/22 15:20 MCHC 32.8 g/dL (30.0-36.0) 12/29/22 15:20 RDW 14.0 % (12.1-15.1) 12/29/22 15:20 Plt Count 230 10^3/cmm (130-400) 12/29/22 15:20 MPV 10.9 fL (7.4-10.4) H 12/29/22 15:20 Neut % (Auto) 57.8 % 12/29/22 15:20 Lymph % (Auto) 25.1 % 12/29/22 15:20 [place] % (Auto) 9.7 % 12/29/22 15:20 Eos % (Auto) 5.9 % 12/29/22 15:20 Baso % (Auto) 1.2 % 12/29/22 15:20 Neut # (Auto) 4.30 10^3/uL (1.8-7.7) 12/29/22 15:20 Lymph # (Auto) 1.9 10^3/uL (0.8-4.8) 12/29/22 15:20 [place] # (Auto) 0.7 10^3/uL (0.2-0.9) 12/29/22 15:20 Eos # (Auto) 0.4 10^3/uL (0.0-0.8) 12/29/22 15:20 Baso # (Auto) 0.1 10^3/uL (0.0-0.1) 12/29/22 15:20 Nucleated RBC % (auto) 0 % 12/29/22 15:20 Nucleated RBCs # 0.0 /100WBC 12/29/22 15:20 Sodium 142 mmol/L (136-145) 12/29/22 15:20 Potassium 4.2 mmol/L (3.5-5.1) 12/29/22 15:20 Chloride 108 mmol/L (98-107) H 12/29/22 15:20 Carbon Dioxide 23 mmol/L (22-29) 12/29/22 15:20 Anion Gap 15.2 (5-19) 12/29/22 15:20 BUN 33 mg/dL (6-20) H 12/29/22 15:20 Creatinine 1.0 mg/dL (0.7-1.2) 12/29/22 15:20 GFR Calculation 78.2 mL/min (90-130) L 12/29/22 15:20 Glucose 92 mg/dL (65-115) 12/29/22 15:20 Calculated Osmolality 301 mOsm/kg (285-295) H 12/29/22 15:20 Calcium 9.0 mg/dL (8.5-10.5) 12/29/22 15:20 Total Bilirubin 0.2 mg/dL (0.15-1.2) 12/29/22 15:20 AST 17 U/L (0-40) 12/29/22 15:20 ALT 22 U/L (0-41) 12/29/22 15:20 Alkaline Phosphatase 48 U/L (40-130) 12/29/22 15:20 Troponin T Baseline 19 ng/L (0-15) H 12/29/22 15:20 Troponin T 120 Minute 21.38 ng/L (0-15) H 12/29/22 17:10 Delta Troponin T 2.38 ABS# (0-10) 12/29/22 17:10 Total Protein 6.8 g/dL (6.6-8.7) 12/29/22 15:20 Albumin 4.2 g/dL (3.5-5.2) 12/29/22 15:20 Globulin 2.6 g/dL (1.3-4.6) 12/29/22 15:20 Discharge Plan Discharge Patient Disposition: Home Clinical Impression: Headache Condition: Stable Prescriptions: No Action zonisamide [Zonegran] 100 mg capsule 600 mg PO DAILY Qty: 540 5RF (DME) blood-glucose meter [Accu-Chek Magali Plus Meter] Misc See Rx Instructions .ROUTE .MEDSUPPLY Qty: 1 0RF Rx Instructions: As directed (DME) Accu-Chek Magali Plus test strp Strip See Rx Instructions .ROUTE .MEDSUPPLY Qty: 100 3RF Rx Instructions: three times a day metformin 1,000 mg tablet 1,000 mg PO DAILY Rx Instructions: Take 1 tablet by mouth daily. (DME) Diabetic shoes See Rx Instructions .Route .MEDSUPPLY Qty: 1 0RF Rx Instructions: As directed propranolol 20 mg tablet 20 mg PO BID Qty: 60 5RF Rx Instructions: Take 1 tablet twice daily (DME) accucheck meter See Rx Instructions .Route .MEDSUPPLY Qty: 1 0RF Rx Instructions: As directed (DME) [employer] lancets and strips See Rx Instructions .Route .MEDSUPPLY Qty: 306 0RF Rx Instructions: As directed ketoconazole 2 % shampoo 1 applic topical .COMPLEX Qty: 120 6RF Rx Instructions: 1 applic topically .2x weekly; Lather into scalp 2-3 weekly. Allow to sit on scalp for 5 minutes before rinsing. hydrocortisone 2.5 % ointment 1 applic topical BID Qty: 454 0RF Rx Instructions: Apply twice a day as needed for flares. Apply no more than two weeks per month. levalbuterol tartrate [Xopenex HFA] 45 mcg/actuation HFA aerosol inhaler 2 inh inhalation Q6H PRN (Reason: shortness of breath or wheezing) Qty: 15 3RF prednisone 10 mg tablet See Rx Instructions PO .COMPLEX PRN (Reason: joint pain) Qty: 30 1RF Rx Instructions: take 1 tab daily for 3-7 days prn joint pain flare PO PRN; Cosentyx Pen 150 mg/mL pen injector 300 mg SUBCUT .[id number] Qty: 2 4RF clobetasol 0.05 % cream 1 applic topical BID Qty: 45 2RF clonazepam [Klonopin] 0.5 mg tablet 0.5 mg PO DAILY PRN (Reason: anxiety) Qty: 30 3RF lorazepam [Lorazepam Intensol] 2 mg/mL concentrate 2 mg sublingual DAILY PRN (Reason: Seizure) Qty: 30 1RF Rx Instructions: Take one mL at onset of generalized seizure Belsomra 20 mg tablet 20 mg PO BEDTIME 30 Days Qty: 30 3RF rosuvastatin 20 mg tablet See Rx Instructions .ROUTE .COMPLEX Qty: 90 0RF Dose Instruction: Take 1 tablet by mouth once daily Rx Instructions: Take 1 tablet by mouth once daily ramipril 2.5 mg capsule 2.5 mg PO DAILY Qty: 30 3RF budesonide-formoterol [Symbicort] 80-4.5 mcg/actuation HFA aerosol inhaler 2 puff inhalation BID Qty: 30.6 3RF apixaban 5 mg tablet 5 mg PO BID Qty: 60 2RF metoprolol tartrate 25 mg tablet 12.5 mg PO DAILY Rx Instructions: Take 1/2 tablet by mouth daily. fenofibrate 160 mg tablet 160 mg PO DAILY Rx Instructions: Take 1 tablet by mouth daily. Discharge Orders: Discharge ED (Routine); Ordered 12/29/22 Ordered By: Issa Verduzco Referrals: Sharon Carter MD [Primary Care Provider] - 1-3 days Discharge Diet: Advance as tolerated Discharge Activity: Resume usual activity Patient Instructions: General Headache (ED) Coding Level of Care Code ED Client Customer Manager for Chg Fwd Documented by User: Issa Verduzco MD 12/29/22 19:13 HPI - Headache General: Chief Complaint: Headache Stated Complaint: Headache x3 Time Seen by Provider: 12/29/22 15:01 PFSH ED PFSH: Medical History Acute pharyngitis Axial spondyloarthritis Cellulitis Contact dermatitis Diabetes Facial droop Generalized epilepsy, intractable Headache High risk medication use Hyperlipidemia Immunization counseling Inflammatory arthritis Insomnia Medication reaction Right knee injury Seizures Strep pharyngitis Surgical History H/O repair of left rotator cuff 2013 Status post colonoscopy (11/05/21) Status post VNS (vagus nerve stimulator) placement Family History Other No pertinent family history Social History Smoking and tobacco status: former smoker Quit status (tobacco): has quit using tobacco Year quit tobacco: 04/20/22 Former quit date comment: smoked 0.5 PPD x 30 yrs Second hand smoke exposure: No Smoking risk assessment/counseling performed?: No Alcohol intake: never Substance/Drug Use: never Lives independently: Yes Household members: significant other Housing: House service: No Current occupational status: disabled Current gender identity: Male Special edwige needs: No Course Vital Signs: Vital signs: Vital Signs Temperature 98.3 F 12/29/22 14:53 Pulse Rate 72 12/29/22 19:14 Respiratory Rate 18 12/29/22 19:14 Blood Pressure 113/71 12/29/22 19:14 Pulse Oximetry 98 12/29/22 19:14 Oxygen Delivery Me thod Room Air 12/29/22 18:50 MDM - Headache Medical Decision Making Patient presents with a headache going on for last 2 to 3 days he has no signs of meningitis or subarachnoid hemorrhage is not the worst headache of his life head CT here is normal headache resolved with Reglan Benadryl he also had some chest pain his troponins here are normal he is stable for discharge he is to follow-up with PCP and return if worsening. Lab Data 12/29/22 15:20 12/29/22 15:20 Radiology Impressions Chest X-Ray 12/29/22 15:04 IMPRESSION: Unremarkable frontal portable chest x-ray. Head CT 12/29/22 15:15 IMPRESSION: 1. No evidence of intracranial hemorrhage or mass effect. 2. Minimal periventricular small vessel changes. No significant parenchymal volume loss. 3. No acute intracranial findings. Laboratory Results WBC 7.4 10^3/uL (4.0-10.0) 12/29/22 15:20 RBC 4.78 10^6/uL (4.1-5.3) 12/29/22 15:20 Hgb 13.7 g/dL (11.7-16.6) 12/29/22 15:20 Hct 41.8 % (42.0-52.0) L 12/29/22 15:20 MCV 87.4 fl (80-94) 12/29/22 15:20 MCH 28.7 pg (28.0-34.0) 12/29/22 15:20 MCHC 32.8 g/dL (30.0-36.0) 12/29/22 15:20 RDW 14.0 % (12.1-15.1) 12/29/22 15:20 Plt Count 230 10^3/cmm (130-400) 12/29/22 15:20 MPV 10.9 fL (7.4-10.4) H 12/29/22 15:20 Neut % (Auto) 57.8 % 12/29/22 15:20 Lymph % (Auto) 25.1 % 12/29/22 15:20 [place] % (Auto) 9.7 % 12/29/22 15:20 Eos % (Auto) 5.9 % 12/29/22 15:20 Baso % (Auto) 1.2 % 12/29/22 15:20 Neut # (Auto) 4.30 10^3/uL (1.8-7.7) 12/29/22 15:20 Lymph # (Auto) 1.9 10^3/uL (0.8-4.8) 12/29/22 15:20 [place] # (Auto) 0.7 10^3/uL (0.2-0.9) 12/29/22 15:20 Eos # (Auto) 0.4 10^3/uL (0.0-0.8) 12/29/22 15:20 Baso # (Auto) 0.1 10^3/uL (0.0-0.1) 12/29/22 15:20 Nucleated RBC % (auto) 0 % 12/29/22 15:20 Nucleated RBCs # 0.0 /100WBC 12/29/22 15:20 Sodium 142 mmol/L (136-145) 12/29/22 15:20 Potassium 4.2 mmol/L (3.5-5.1) 12/29/22 15:20 Chloride 108 mmol/L (98-107) H 12/29/22 15:20 Carbon Dioxide 23 mmol/L (22-29) 12/29/22 15:20 Anion Gap 15.2 (5-19) 12/29/22 15:20 BUN 33 mg/dL (6-20) H 12/29/22 15:20 Creatinine 1.0 mg/dL (0.7-1.2) 12/29/22 15:20 GFR Calculation 78.2 mL/min (90-130) L 12/29/22 15:20 Glucose 92 mg/dL (65-115) 12/29/22 15:20 Calculated Osmolality 301 mOsm/kg (285-295) H 12/29/22 15:20 Calcium 9.0 mg/dL (8.5-10.5) 12/29/22 15:20 Total Bilirubin 0.2 mg/dL (0.15-1.2) 12/29/22 15:20 AST 17 U/L (0-40) 12/29/22 15:20 ALT 22 U/L (0-41) 12/29/22 15:20 Alkaline Phosphatase 48 U/L (40-130) 12/29/22 15:20 Troponin T Baseline 19 ng/L (0-15) H 12/29/22 15:20 Troponin T 120 Minute 21.38 ng/L (0-15) H 12/29/22 17:10 Delta Troponin T 2.38 ABS# (0-10) 12/29/22 17:10 Total Protein 6.8 g/dL (6.6-8.7) 12/29/22 15:20 Albumin 4.2 g/dL (3.5-5.2) 12/29/22 15:20 Globulin 2.6 g/dL (1.3-4.6) 12/29/22 15:20 Discharge Plan Discharge Patient Disposition: Home Clinical Impression: Headache Condition: Stable Prescriptions: No Action zonisamide [Zonegran] 100 mg capsule 600 mg PO DAILY Qty: 540 5RF (DME) blood-glucose meter [Accu-Chek Magali Plus Meter] Misc See Rx Instructions .ROUTE .MEDSUPPLY Qty: 1 0RF Rx Instructions: As directed (DME) Accu-Chek Magali Plus test strp Strip See Rx Instructions .ROUTE .MEDSUPPLY Qty: 100 3RF Rx Instructions: three times a day metformin 1,000 mg tablet 1,000 mg PO DAILY Rx Instructions: Take 1 tablet by mouth daily. (DME) Diabetic shoes See Rx Instructions .Route .MEDSUPPLY Qty: 1 0RF Rx Instructions: As directed propranolol 20 mg tablet 20 mg PO BID Qty: 60 5RF Rx Instructions: Take 1 tablet twice daily (DME) accucheck meter See Rx Instructions .Route .MEDSUPPLY Qty: 1 0RF Rx Instructions: As directed (DME) [employer] lancets and strips See Rx Instructions .Route .MEDSUPPLY Qty: 306 0RF Rx Instructions: As directed ketoconazole 2 % shampoo 1 applic topical .COMPLEX Qty: 120 6RF Rx Instructions: 1 applic topically .2x weekly; Lather into scalp 2-3 weekly. Allow to sit on scalp for 5 minutes before rinsing. hydrocortisone 2.5 % ointment 1 applic topical BID Qty: 454 0RF Rx Instructions: Apply twice a day as needed for flares. Apply no more than two weeks per month. levalbuterol tartrate [Xopenex HFA] 45 mcg/actuation HFA aerosol inhaler 2 inh inhalation Q6H PRN (Reason: shortness of breath or wheezing) Qty: 15 3RF prednisone 10 mg tablet See Rx Instructions PO .COMPLEX PRN (Reason: joint pain) Qty: 30 1RF Rx Instructions: take 1 tab daily for 3-7 days prn joint pain flare PO PRN; Cosentyx Pen 150 mg/mL pen injector 300 mg SUBCUT .[id number] Qty: 2 4RF clobetasol 0.05 % cream 1 applic topical BID Qty: 45 2RF clonazepam [Klonopin] 0.5 mg tablet 0.5 mg PO DAILY PRN (Reason: anxiety) Qty: 30 3RF lorazepam [Lorazepam Intensol] 2 mg/mL concentrate 2 mg sublingual DAILY PRN (Reason: Seizure) Qty: 30 1RF Rx Instructions: Take one mL at onset of generalized seizure Belsomra 20 mg tablet 20 mg PO BEDTIME 30 Days Qty: 30 3RF rosuvastatin 20 mg tablet See Rx Instructions .ROUTE .COMPLEX Qty: 90 0RF Dose Instruction: Take 1 tablet by mouth once daily Rx Instructions: Take 1 tablet by mouth once daily ramipril 2.5 mg capsule 2.5 mg PO DAILY Qty: 30 3RF budesonide-formoterol [Symbicort] 80-4.5 mcg/actuation HFA aerosol inhaler 2 puff inhalation BID Qty: 30.6 3RF apixaban 5 mg tablet 5 mg PO BID Qty: 60 2RF metoprolol tartrate 25 mg tablet 12.5 mg PO DAILY Rx Instructions: Take 1/2 tablet by mouth daily. fenofibrate 160 mg tablet 160 mg PO DAILY Rx Instructions: Take 1 tablet by mouth daily. Discharge Orders: Discharge ED (Routine); Ordered 12/29/22 Ordered By: Issa Verduzco Referrals: Sharon Carter MD [Primary Care Provider] - 1-3 days Discharge Diet: Advance as tolerated Discharge Activity: Resume usual activity Patient Instructions: General Headache (ED) Coding Level of Care Code ED Client Customer Manager for Pinky Guerra
--- NOTE | 2022-12-29 15:15 | CT_ITS ---
WS: [id number] CT HEAD TECHNIQUE: Noncontrast CT of the head obtained from the skullbase to the vertex. CLINICAL INFORMATION: headache x3 d COMPARISON: None. DLP: 1134.[address] scans at [facility] use at least one of these dose optimization techniques: automated e xposure control; mA and/or kV adjustment per patient size (includes targeted exams where dose is matc hed to clinical indication); or iterative reconstruction. FINDINGS: No evidence of intracranial hemorrhage or mass effect. Ventricular system and basal cisterns are fields nt. Minimal small vessel changes with no significant parenchymal volume loss. No extra-axial fluid co llections. No evidence of mass or mass effect. Mild intracranial vascular calcification. Paranasal sinuses and mastoid air cells are well aerated. .Normal visualized soft tissues. CT/CT head wo con* [id number] IMPRESSION: 1. No evidence of intracranial hemorrhage or mass effect. 2. Minimal periventricular small vessel changes. No significant parenchymal vo lume loss. 3. No acute intracranial findings.
[2022-12-29 15:32] LABS: Basophils # 0.1 10^3/uL (0.0-0.1); Basophils % 1.2 %; Eosinophils # 0.4 10^3/uL (0.0-0.8); Eosinophils % 5.9 %; Hematocrit 41.8 % (42.0-52.0); Hemoglobin 13.7 g/dL (11.7-16.6); Lymphocytes # 1.9 10^3/uL (0.8-4.8); Lymphocytes % 25.1 %; Mean Corpuscular HGB Conc 32.8 g/dL (30.0-36.0); Mean Corpuscular Hemoglobin 28.7 pg (28.0-34.0); Mean Corpuscular Volume 87.4 fl (80-94); Mean Platelet Volume 10.9 fL (7.4-10.4); Monocytes # 0.7 10^3/uL (0.2-0.9); Monocytes % 9.7 %; Neutrophils % 57.8 %; Nucleated Red Blood Cells % 0 %; Platelet Count 230 10^3/cmm (130-400); Red Blood Count 4.78 10^6/uL (4.1-5.3); White Blood Count 7.4 10^3/uL (4.0-10.0)
[2022-12-29 15:57] LABS: Alanine Aminotransferase 22 U/L (0-41); Albumin Level 4.2 g/dL (3.5-5.2); Alkaline Phosphatase 48 U/L (40-130); Anion Gap 15.2 (5-19); Aspartate Amino Transferase 17 U/L (0-40); Blood Urea Nitrogen 33 mg/dL (6-20); Carbon Dioxide 23 mmol/L (22-29); Chloride 108 mmol/L (98-107); Globulin 2.6 g/dL (1.3-4.6); Glomerular Filtration Rate 78.2 mL/min (90-130); Glucose 92 mg/dL (65-115); Osmolality Calculated 301 mOsm/kg (285-295); Potassium 4.2 mmol/L (3.5-5.1); Sodium 142 mmol/L (136-145); Total Bilirubin 0.2 mg/dL (0.15-1.2); Total Protein 6.8 g/dL (6.6-8.7)
[2022-12-29 16:05] LABS: Troponin(5th) Baseline 19 ng/L (0-15)
--- NOTE | 2022-12-29 17:05 | ECG_ITS ---
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 Measurements Intervals [place] Rate: 65 P: 48 ID: [id number] QRS: 4 QRSD: 100 T: -28 QT: 395 QTc: 413 Interpretive Statements SINUS RHYTHM LOW QRS VOLTAGE IN PRECORDIAL LEADS [QRS DEFLECTION < 1.0 mV IN CHEST LEADS] MINIMAL ST DEPRESSION [0.025+ mV ST DEPRESSION] Compared to ECG 12/29/2022 15:17:17 ST (T wave) deviation now present Myocardial infarct finding no longer present Electronically Signed On 12-30-2022 0:34:54 CDT by Chery Hoffmann M.D. [id number]
[2022-12-29 17:15] VITALS: BP 105/82; PULSE 67; RESP 14; O2SAT 98
[2022-12-29 17:56] LABS: Troponin 5 2HR 21.38 ng/L (0-15)
[2022-12-29 17:58] LABS: Troponin 5 2HR Delta 2.38 ABS# (0-10)
[2022-12-29] MEDS: diphenhydrAMINE 50 mg/mL SDV 1mL IVP (18:22)
[2022-12-29] MEDS: metoclopramide 5 mg/mL SDV 2 mL 10 MG IVP (18:22)
[2022-12-29] MEDS: sodium chloride 0.9% 1,000 ML 999 ML IV (18:23)
[2022-12-29 18:50] VITALS: BP 91/61; PULSE 75; RESP 14; O2SAT 98
[2022-12-29 19:14] VITALS: BP 113/71; PULSE 72; RESP 18; O2SAT 98
== END 2022-12-29 19:20 | disposition home or self-care (01) ==
PROVIDERS: Family Medicine; Emergency Provider Emergency Medicine; PCP Family Medicine
DX: R51.9 Headache, unspecified (principal); Z79.84 Long term (current) use of oral hypoglycemic drugs; Z87.891 Personal history of nicotine dependence; E11.9 Type 2 diabetes mellitus without complications; E78.5 Hyperlipidemia, unspecified
CPT/HCPCS: 36415; 70450; 71045; 80053; 84484; 85025; 93005; 96374; 96375; 99285; J1200; J2765; J7030

== ENCOUNTER 2023-01-11 13:21 | Outpatient (CLI) | payer MEDICARE, MEDICAID, SELFPAY ==
--- NOTE | 2023-01-11 13:30 | USCV_ITS ---
Abad Hernandez Age: 52 Gender: M : 1970 Exam Date: 01/11/2023 14:02 Ordering Phys: Albert Berman M.D ([email or web address]) Technologist: [place] [facility] [place]: sob, cp BP: 130 / 69 HR: 76 Rhythm: Sinus Technical Quality: MEASUREMENTS (Male / Female) Normal Values 2D ECHO LV Diastolic Diameter PLAX 4.8 cm 4.2 - 5.9 / 3.9 - 5.3 cm LV Systolic Diameter PLAX 2.9 cm IVS Diastolic Thickness 1.2 cm 0.6 - 1.0 / 0.6 - 0.9 cm IVS Systolic Thickness 1.2 cm LVPW Diastolic Thickness 0.9 cm 0.6 - 1.0 / 0.6 - 0.9 cm LVPW Systolic Thickness 1.7 cm LVOT Diameter 2.1 cm LV Ejection Fraction 2D Teich 70.3 % LV Ejection Fraction MOD 2C 47.9 % LV Ejection Fraction 2C AL 46.3 % LA Diameter 3.9 cm Aorta at Sinotubular Diameter 2.1 cm IVC Diameter 1.7 cm M-MODE Aortic Annulus Diameter 3.1 cm LA Ao Ratio MM 1.5 MV E Point Septal Separation 0.8 cm DOPPLER AV Peak Velocity 179.0 cm/s LVOT Peak Velocity 144.0 cm/s AV Area Cont Eq vti 2.4 cm squared AV Area Cont Eq pk 2.7 cm squared MV Peak Velocity 105.0 cm/s MV Area PHT 4.8 cm squared Mitral E to A Ratio 1.1 MV E' Velocity 57.0 cm/s Mitral E to MV E' Ratio 10.0 Mitral E to LV E' Lateral Ratio 8.7 Mitral E to LV E' Septal Ratio 12.0 TR Peak Velocity 221.0 cm/s TR Peak Gradient 19.5 mmHg TR Mean Velocity 139.7 cm/s TR Mean Gradient 10.0 mmHg TR Velocity Time Integral 40.7 cm TV Peak E Velocity 78.0 cm/s Right Atrial Pressure 3.0 mmHg Pulmonary Artery Systolic Pressu 22.5 mmHg FINDINGS Left Ventricle Left ventricle is normal in size. LV systolic function is normal with EF of 55 to 60%. No regional wall motion abnormalities are seen. Diastolic function is normal Right Ventricle Normal in size and Function Right Atrium Normal in size Left Atrium Normal in size Mitral Valve Structurally normal mitral valve.Trace mitral regurgitation. Aortic Valve Structurally normal aortic valve. No significant stenosis or regurgitation is seen. Tricuspid Valve Mild tricuspid regurgitation. Pulmonary artery systolic pressure is normal. Pulmonic Valve Not Well-visualized Pericardium Normal Aorta Normal in size IVC Appears to be normal CONCLUSIONS LV systolic function is normal with EF 55 to 60%. Diastolic function is normal. Trace mitral regurgitation Mild tricuspid regurgitation Compared to prior echocardiogram from 06/2022, RV function has significantly improved and no thrombus is seen Albert Berman MD (Electronically Signed) Final Date: 15 January 2023 17:28 S
== END 2023-01-11 13:22 | disposition home or self-care (01) ==
LOC: RAD 13:24
PROVIDERS: PCP Family Medicine; Visit Provider Internal Medicine
DX: R07.9 Chest pain, unspecified (principal); R06.02 Shortness of breath; I34.0 Nonrheumatic mitral (valve) insufficiency; I07.1 Rheumatic tricuspid insufficiency
CPT/HCPCS: 93306

== ENCOUNTER → 2023-03-16 10:21 | Outpatient (BNVA) | payer MEDICARE, MEDICAID, SELFPAY | PROVIDERS: PCP Family Medicine; Visit Provider Specialist | DX: G40.802 Other epilepsy, not intractable, without status epilepticus (principal); G25.0 Essential tremor; G58.8 Other specified mononeuropathies; Z79.899 Other long term (current) drug therapy; Z96.89 Presence of other specified functional implants; R10.32 Left lower quadrant pain; Z79.01 Long term (current) use of anticoagulants | CPT/HCPCS: 95970; 99214 ==

== ENCOUNTER → 2023-03-25 14:08 | Outpatient (BNVA) | payer MEDICARE, MEDICAID, SELFPAY | PROVIDERS: PCP Family Medicine; Visit Provider Internal Medicine Rheumatology | DX: Z79.899 Other long term (current) drug therapy (principal); M46.90 Unspecified inflammatory spondylopathy, site unspecified; Z71.85 Encounter for immunization safety counseling; S89.91XA Unspecified injury of right lower leg, initial encounter; X58.XXXA Exposure to other specified factors, initial encounter | CPT/HCPCS: 36415; 80076; 82565; 85025; 85651; 86140; 99214 ==

== ENCOUNTER → 2023-04-27 11:24 | Outpatient (BNVA) | payer MEDICARE, MEDICAID, SELFPAY | PROVIDERS: PCP Family Medicine; Visit Provider Family Medicine | DX: R68.89 Other general symptoms and signs (principal); J02.0 Streptococcal pharyngitis; J02.9 Acute pharyngitis, unspecified | CPT/HCPCS: 87400; 87426; 87880 ==

== ENCOUNTER → 2023-05-05 08:42 | Outpatient (BNVA) | payer MEDICARE, MEDICAID, SELFPAY | PROVIDERS: PCP Family Medicine; Visit Provider Anesthesiology Pain Medicine | DX: G89.29 Other chronic pain; M45.9 Ankylosing spondylitis of unspecified sites in spine; M16.0 Bilateral primary osteoarthritis of hip; M25.561 Pain in right knee; M25.562 Pain in left knee; M54.6 Pain in thoracic spine; M54.50 Low back pain, unspecified | CPT/HCPCS: 99205 ==

== ENCOUNTER → 2023-05-17 15:02 | Outpatient (BNVA) | payer MEDICARE, MEDICAID, SELFPAY | PROVIDERS: PCP Family Medicine; Visit Provider Internal Medicine | DX: I26.92 Saddle embolus of pulmonary artery without acute cor pulmonale (principal); I82.401 Acute embolism and thrombosis of unspecified deep veins of right lower extremity; R07.9 Chest pain, unspecified; I51.3 Intracardiac thrombosis, not elsewhere classified; I27.20 Pulmonary hypertension, unspecified; E78.2 Mixed hyperlipidemia; E11.9 Type 2 diabetes mellitus without complications; Z79.01 Long term (current) use of anticoagulants; Z87.891 Personal history of nicotine dependence | CPT/HCPCS: 99214 ==

== ENCOUNTER 2023-05-21 08:14 | Outpatient (CLI) | payer MEDICARE, MEDICAID, SELFPAY ==
--- NOTE | 2023-05-21 | ECG_ITS ---
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 Interpretive Statements NAME OF STUDY: LEXISCAN SESTAMIBI STRESS TEST INDICATION: Chest Pain; Dyspnea on Exertion PROCEDURE: At the baseline, the blood pressure was 122/77 mm Hg with a heart rate of 62 bpm. The electrocardiogram showed sinus rhythm, left axis deviation. 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 ??? The Lexiscan was infused over a period of 20 seconds. A total of 0.4 milligrams of Lexiscan was infused. The stress phase was continued for a total of 5 minutes. Heart rate at the end of the stress phase was 63 bpm with a blood pressure of 111/63 mm Hg. The EKG at the peak infusion revealed no significant ST-T wave changes. ??? Sestamibi was injected 20 seconds after the Lexiscan infusion. ??? Blood pressure at the end of the recovery phase was 115/63 mm Hg with a heart rate of 80 beats per minute. ??? CONCLUSION: 1. Normal EKG response to LexiScan infusion. 2. No LexiScan induced chest pain or cardiac arrhythmia. 3. Normal blood pressure and heart rate response. 4. Sestamibi/sestamibi perfusion scan pending; see separate report. Electronically Signed On 05-25-2023 1:59:16 SUPERVISOR PLEATING by Chery Hoffmann M.D. [id number]
[2023-05-21 08:54] VITALS: BMI 28.8
--- NOTE | 2023-05-21 09:01 | NMCV_ITS ---
NM man perf SPECT r/s* [id number] Abad Hernandez Age: 53 Gender: M : 1970 Exam Date: 05/21/2023 09:25 Ordering Phys: Albert Berman M.D ([email or web address]) Technologist: LESLI Wong Exam Location: [facility] Indications: CHEST PAIN SHORTNESS OF BREATH STRESS TEST Please see separate stress test report in [facility] for full findings IMAGE PROTOCOL Rest/Stress 1 Lexiscan Day Radiopharmaceutical Dose (mCi) Administration Site Administered by Rest: Tc-99m 10.9 IV LESLI Hernandez Sestamibi Stress:Tc-99m 32.4 IV LESLI Hernandez Sestamibi Rest: 21-May-2023 60 Discovery 630 Stress: 21-May-2023 30 Discovery 630 0.4mg Lexiscan. Images obtained in supine and prone position. SPECT RESULTS Technical Quality: Excellent Raw Data Analysis: Normal Image Corrections: No attenuation or motion correction applied Summed Stress Score: 6 Summed Rest Score: 0 Summed Difference Score: 6 PERFUSION FINDINGS Small sized perfusion abnormality of mild severity of mid anterolateral, mid inferolateral and apical lateral chou on supine stress images with improved tracer uptake in prone stress images. FUNCTIONAL RESULTS (calculated via Gated SPECT) Stress Image LV EF (%): 74 Stress EDV (mL):98 TID: 0.98 Stress ESV (mL):25 FUNCTIONAL FINDINGS: The left ventricle is normal in size. Transient Ischemia Dilatation of 0.98. The left ventricular ejection fraction is normal with a value of 74%. There is normal left ventricular wall thickening. Normal end diastolic and end systolic volumes. IMPRESSIONS 1. Small sized reversible perfusion abnormality of mild severity of mid anterolateral, mid inferolateral and apical lateral chou. 2. This may represent small area of ischemia in circumflex artery territory. However with improved tracer uptake in prone images, attenuation artifact cannot be ruled out. 3. Overall left ventricular systolic function is normal without regional wall motion abnormalities, LVEF=74%. 4. No EKG changes with lexiscan infusion. Refer to separate report for details. Chery Hoffmann MD (Electronically Signed) Final Date: 25 May 2023 02:28 S
[2023-05-21 10:24] VITALS: BP 118/64; PULSE 80
[2023-05-21] MEDS: regadenoson 0.4 Mg/5 ml Syringe IVP (10:27)
== END 2023-05-21 08:15 | disposition home or self-care (01) ==
LOC: CDL 08:16
PROVIDERS: PCP Family Medicine; Visit Provider Internal Medicine
DX: R07.9 Chest pain, unspecified (principal); R06.02 Shortness of breath; R93.1 Abnormal findings on diagnostic imaging of heart and coronary circulation
CPT/HCPCS: 36415; 78452; 93017; 96374; A9500; J2785

== ENCOUNTER → 2023-05-25 14:57 | Outpatient (BNVA) | payer MEDICARE, MEDICAID, SELFPAY | PROVIDERS: PCP Family Medicine; Visit Provider Anesthesiology Pain Medicine | DX: M16.12 Unilateral primary osteoarthritis, left hip | CPT/HCPCS: 20610; 77002; J1030; J3490 ==

== ENCOUNTER 2023-05-28 14:45 | Outpatient (CLI) | payer MEDICARE, MEDICAID, SELFPAY ==
--- NOTE | 2023-05-28 14:45 | US_ITS ---
WS: [id number] TESTICULAR ULTRASOUND HISTORY: N50.89 - Other specified disorders of the male genital or... COMPARISON: 09/25/2020 TECHNIQUE: Real-time and color Doppler imaging or utilized to perform a testicular ultrasound. Right testicle: 4.6 cm x 3.3 cm x 2.4 cm. Normal size and echogenicity. No mass or torsion. Normal color Doppler is present throughout. Systolic and diastolic velocities are both present. No significant hydrocele. Right epididymis: Normal epididymis with no increased vascularity. Left testicle: 4.5 cm x 3.2 cm x 3.0 cm. Normal size and echogenicity. No mass or torsion. Normal color Doppler is present throughout. Systolic and diastolic velocities are both present. Small simple hydrocele. Hydrocele is similar in size to the prior study of 09/25/2020. Left epididymis: Normal epididymis with no increased vascularity. IMPRESSION: 1. Small LEFT hydrocele. Similar in appearance to the prior study from 09/25/2020. 2. No testicular mass or torsion.
== END 2023-05-28 14:46 | disposition home or self-care (01) ==
LOC: RAD 14:45
PROVIDERS: PCP Family Medicine; Visit Provider Specialist
DX: N50.89 Other specified disorders of the male genital organs (principal); R10.32 Left lower quadrant pain; N43.3 Hydrocele, unspecified
CPT/HCPCS: 76870

== ENCOUNTER → 2023-06-24 08:48 | Outpatient (BNVA) | payer MEDICARE, MEDICAID, SELFPAY | PROVIDERS: PCP Family Medicine; Visit Provider Anesthesiology Pain Medicine | DX: M54.6 Pain in thoracic spine; M54.50 Low back pain, unspecified; G89.29 Other chronic pain; M16.0 Bilateral primary osteoarthritis of hip; M25.561 Pain in right knee; M25.562 Pain in left knee; M46.90 Unspecified inflammatory spondylopathy, site unspecified; Z79.899 Other long term (current) drug therapy; Z71.85 Encounter for immunization safety counseling; S89.91XA Unspecified injury of right lower leg, initial encounter; X58.XXXA Exposure to other specified factors, initial encounter; R58 Hemorrhage, not elsewhere classified; I20.0 Unstable angina; I27.20 Pulmonary hypertension, unspecified; R06.09 Other forms of dyspnea | CPT/HCPCS: 36415; 80048; 80076; 85025; 85610; 86140; 99214 ==

== ENCOUNTER 2023-06-30 09:50 | Day surgery (SDC) | payer MEDICARE, MEDICAID, SELFPAY ==
[2023-06-30 07:30] VITALS: BP 144/82; PULSE 79; RESP 18; O2SAT 97; BMI 30.4
[2023-06-30] MEDS: aspirin 325 mg Tablet PO (07:30)
[2023-06-30] MEDS: diphenhydrAMINE 50 mg Capsule PO (07:30)
--- NOTE | 2023-06-30 07:30 | XACV_ITS ---
Exam Room: 2 Ht: 170 cm Wt: 88 kg BSA: 2.07 m2 Gender: Male : 1970 Any Known Allergies: Other Exam Priority: Routine Procedure(s): Procedure Description: Diagnostic procedure Procedure Description: Left Heart Catheterization Procedure Description: Left ventriculography Procedure Description: Coronary Angiography Diagnostic Cath Status: Elective Diagnostic Findings * INDICATION: Chest pain/ abnormal stress test. * No significant disease noted in the Left Main, Left Anterior Descending, Right, or Circumflex coronary arteries. * Coronary angiography shows right dominance. Conclusions 1. No significant disease noted in the Left Main, Left Anterior Descending, Right, or Circumflex coronary arteries. 2. Normal left ventricular systolic function. Ejection fraction of 55%. Recommendations * Aggressive risk factor modification. * Outpatient cardiology follow up in 4 weeks. Interventional RX Recommendation: medical therapy and/or counseling Diagnostic RX Recommendation: medical therapy and/or counseling Ventriculography Ejection Fraction: 55.0 % Pressures Phase:Rest AO : 110 / 73 ( 91 ) @ 9:13:00 AM 108 / 58 ( 86 ) @ 9:19:00 AM 111 / 59 ( 82 ) @ 9:19:00 AM LV : 121 / -11 / 5 @ 9:18:00 AM 121 / -13 / 6 @ 9:18:00 AM 128 / -10 / 12 @ 9:19:00 AM 119 / -11 / 25 @ 9:19:00 AM Valves Phase:DefaultPhase AV : 0.0 @ 9:43:02 AM 0.0 @ 9:43:02 AM AV Mean Gradient: 0.0 @ 9:43:02 AM Clinical Evaluation EBL: 5mL-10mL Procedural Details Pre-Procedure Time Out. Identified patient by full name and date of as verbalized by the patient/guarantor. Does the consent match the physician's order: Yes. Accurate & Complete Informed Consent: Yes. Inpatient/Outpatient History & Physical on Chart: Yes. If H&P is completed, is and addenduem needed: No; If yes, is the addendum complete: N/A. Visualize and Verify Site with Patient/Guarantor: N/A. Relevant Radiology Images available: Yes. Pre-op teaching completed and patient verbalized understanding. The risks, benefits, and alternatives of sedation and/or procedure were discussed by physician. The patient agrees to continue. Procedure started. Current Diagnosis : Chest Pain. [facility] Clinical Fraility Score: 3: Managing Well. 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 Chest Pain Symptom Assessment: Atypical Angina. Correct patient, site and procedure confirmed by cath team. Current diagnosis: Chest Pain. PERRLA. 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 Lungs clear x 5 lobes. IV Site on Arrival: 20 gauge in the left anticubital. IV Fluids: 0.9% NaCl at KVO. 0 mL infused prior to laboratory specialist. Pre Procedural Pulses: bilateral dorsalis pedis was 3+. Pre Procedural Pulses: bilateral posterior tibial was 3+. Pre Procedural Pulses: bilateral radial was 3+. Oxygen started at 2liters/min via nasal canula. right groin was prepped with chloroprep then draped in the usual sterile fashion. right radial was prepped with chloroprep then draped in the usual sterile fashion. Physician notified. Baseline sample Acquired. HR: 88 BPM. Physician arrived. Physician scrubbed in. Immediate Pre-Procedure Time Out. Correct Patient: Yes; Correct Procedure: Yes; Correct Site: Yes; Correct Patient Position: Yes; Correct Supplies: Yes; Dried Flammable Prep: Yes; Blood Products Available: N/A;. Lidocaine 1% infiltrated to the right radial. Arterial access obtained. A 5 ku[place]i TIG catheter in over wire. Catheter removed over the exchange wire. A 5 ku[place] JR4 catheter in over wire. Multiple views taken of right coronary artery. Catheter removed over the exchange wire. A 5 ku[place] JL3.5 catheter in over wire. Catheter removed over the exchange wire. A TR Band was successful obtaining hemostatsis at the Right Radial artery insertion site. Lidocaine 1% infiltrated to the right groin. Arterial access obtained with micropuncture set. A 5 ku[place]i JL3.5 catheter in over wire. Multiple views taken of left coronary artery. Catheter removed over the standard wire. A 5 ku[place]i Angled Pig catheter in over wire. EDP Sample taken: LV 121/-14,6; HR: 83 BPM; SpO2: 100%. LV gram performed in CHANDLER @ 10 mL/second for a total of 30 mL. EDP Sample taken: LV 128/-10,12; HR: 86 BPM; SpO2: 100%. Pullback taken: LV 119/-12,25; AO 108/58(86); Mean: 0mmHg, Peak to Peak: 0mmHg, SEP: 10sec/min; HR: 112 BPM; SpO2: 100%. Catheter removed over the standard wire. A Right femoral angiogram was performed to determine safe placement of closure device. A Mynx was successful obtaining hemostatsis at the Right Femoral artery insertion site. Post Procedure: Pulses reassessed and unchanged. PERRLA. 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 No VTE prophylaxis required. Medication's Wasted: Lidocaine 1% = 2 mL. Medication's Wasted: Nitro = 49.8 mcg. Medication's Wasted: Other = Fentanyl 50 mcg. Medication's Wasted: Heparin = 1000 units. Total IV fluids: 60 mL. Complications: None. Post-op diagnosis: Normal Coronaries. Estimated blood loss: 5mL-10mL. Responsiveness - Normal response to verbal stimuli; alert and oriented, PERRLA. Airway - Unaffected, no intervention required; spontaneous ventilation. Circulation: W/N/L, pulses unchanged. Nausea/Vomiting: No. Procedure completed. Vital chart was stopped. Patient transferred by bed to ICU. Access Site Site: Right Radial artery Sheath Size: 6 Fr Hemostasis Method: TR Band Hemostasis Success: Successful Site: Right Femoral artery Sheath Size: 6 Fr Hemostasis Method: Mynx Hemostasis Success: Successful Procedure Medications Start: 8:39 AM Stop: 8:39 AM Medication: Fentanyl Amount: 50 mcg Route: I.V. Start: 8:49 AM Stop: 8:49 AM Medication: Versed Amount: 1 mg Route: I.V. Start: 8:50 AM Stop: 8:50 AM Medication: Nitrogylcerin Amount: 200 mcg Route: I.A. Start: 8:52 AM Stop: 8:52 AM Medication: Heparin Amount: 5000 units Route: I.V. Start: 9:00 AM Stop: 9:00 AM Medication: Versed Amount: 1 mg Route: I.V. I, the attending physician, have reviewed and verified all procedure medications. Yes, all medications given per verbal order History/Risk Factors Hypertension: No Dyslipidemia: Yes Peripheral Arterial Disease (PAD): No Myocardial Infarction (GA): No Obesity: No Renal Disease: No Tobacco Use: Former Prior Interventions PCI: No CABG: No Valve Surgery: No Report Signatures Finalized by Albert Berman MD on 07/04/2023 03:52 PM
[2023-06-30 07:50] LABS: Glucose Point of Care 128 mg/dL (70-110)
--- NOTE | 2023-06-30 08:46 | W.PM.OPSFHP ---
Same Day Surgery H&P Indication for Procedure/HPI DATE OF PROCEDURE: June 30, 2023 CHIEF COMPLAINT/INDICATIONFOR SURGICAL PROCEDURE: Chest pain/ abnormal stress test PREOP DIAGNOSIS: Chest pain/ abnormal stress test PLANNED PROCEDURE: Operation Date: 06/30/23 08:30 Proposed Procedures p Left Heart Cath 82666,I20.0, r94.39(Left) - Albert Berman M.D Possible percutaneous coronary intervention 53-year-old man with past medical history of saddle PE has been having on and off chest pain symptoms. Recently has noted worsening. Stress test was performed that showed small area of ischemia however given significant chest discomfort symptoms, plan for coronary angiogram. Medications/Allergies* Home Medications Medication Instructions Recorded Confirmed Type fenofibrate 160 mg tablet 160 mg PO DAILY 11/03/21 06/29/23 History metformin 1,000 mg tablet 1,000 mg PO DAILY 08/24/22 06/29/23 History lancets (Accu-Chek Softclix #100 ea 05/05/23 06/29/23 History Lancets) Allergies/Adverse Reactions Allergy/AdvReac Type Severity Reaction Status Date / Time carbamazepine [From Tegretol] Allergy Unresponsiv Verified 06/24/23 14:04 e gabapentin Allergy ALGY-Hives Verified 06/24/23 14:04 phenytoin [From Dilantin] Allergy ADV-Weaknes Verified 06/24/23 14:04 s couconut Allergy rash Uncoded 06/24/23 14:04 Current Medications: Generic Name Dose Route Start Last Admin Trade Name Freq PRN Reason Stop Dose Admin Sodium Chloride 1,000 mls @ 50 mls/hr 06/30/23 07:30 06/30/23 07:58 Sodium Chloride 0.9% IV 07/01/23 03:29 Not Given .Q20H ONE Pertinent History/Comorbid Conditions* Medical History (Updated 05/05/23 @ 14:51 by Yordy Jo MD) Right knee injury Inflammatory arthritis Axial spondyloarthritis Headache Facial droop Immunization counseling High risk medication use Strep pharyngitis Acute pharyngitis Contact dermatitis Medication reaction Cellulitis Diabetes Hyperlipidemia Seizures Insomnia Generalized epilepsy, intractable Surgical History (Updated 03/16/23 @ 11:24 by Rosi Ayala MD) Status post colonoscopy (11/05/21) Status post VNS (vagus nerve stimulator) placement H/O repair of left rotator cuff 2013 Family History (Updated 09/25/20 @ 08:12 by Raven Yates LPN) No pertinent family history Social History Smoking and tobacco/nicotine status: former use of tobacco/nicotine Quit status (tobacco/nicotine): has quit using Year quit tobacco: 04/20/22 Former quit date comment: smoked 0.5 PPD x 30 yrs Second hand smoke exposure: No Alcohol intake: never Substance/Drug Use: never Lives independently: Yes Household members: significant other Housing: House service: No Current occupational status: disabled Current gender identity: Male Special edwige needs: No Pertinent Exam Findings alert, oriented x 3, clear to auscultation bilaterally and regular rate & rhythm Conscious Sedation Assessment PATIENT ASSESSED PRIOR TO SEDATION, WITH NO CHANGE NOTED: Yes AIRWAY EVAL/ANESTHESIA PLAN: normal airway, ASA III, Local Anesthesia, Risks, benefits & alternatives of sedation and/or procedure discussed and Patient agrees to continue as planned ADDITIONAL INFORMATION: Moderate sedation Recommendations Surgery/Procedure today Other Plans: Left heart cath with possible percutaneous coronary intervention. Coding Level of Care Code Acute Code for Pinky Guerra
[2023-06-30 09:54] VITALS: BMI 30.4
--- NOTE | 2023-06-30 13:11 | PC.NURSE ---
TR Band removed at 1300. Dressing intact no bleeding noted, no s/s of hematoma. Right groin dressing also in place. Very small hematoma present that has been the same size since arrival to ICU.
[2023-06-30 14:50] VITALS: BP 144/82; PULSE 79; RESP 18; O2SAT 97
--- NOTE | 2023-06-30 16:40 | PC.NURSE ---
Patient received discharge orders. All IVs removed. No new meds. Patient verbalized understanding along with family. Patient left to main exit at 1625.
== END 2023-06-30 16:25 | disposition home or self-care (01) ==
LOC: ICU 11:38 → ICUOP 07-01 06:04
PROVIDERS: PCP Family Medicine; Visit Provider Internal Medicine
DX: R07.9 Chest pain, unspecified (principal); R94.39 Abnormal result of other cardiovascular function study; Z86.711 Personal history of pulmonary embolism; Z79.84 Long term (current) use of oral hypoglycemic drugs; E78.5 Hyperlipidemia, unspecified; Z87.891 Personal history of nicotine dependence
CPT/HCPCS: 36415; 36416; 82962; 93458; 96365; 99152; 99153; C1760; C1769; C1887; C1894; J1644; J2250; J3010; J3490; J7030; Q0163; Q9967

== ENCOUNTER → 2023-07-09 09:40 | Outpatient (BNVA) | payer MEDICARE, MEDICAID, SELFPAY | PROVIDERS: PCP Family Medicine; Visit Provider Nurse Practitioner Family | DX: R06.09 Other forms of dyspnea (principal); Z87.891 Personal history of nicotine dependence | CPT/HCPCS: 36415; 80048; 99214 ==

== ENCOUNTER → 2023-09-23 14:17 | Outpatient (BNVA) | payer MEDICARE, MEDICAID, SELFPAY | PROVIDERS: PCP Family Medicine; Visit Provider Internal Medicine Rheumatology | DX: M46.90 Unspecified inflammatory spondylopathy, site unspecified (principal); Z79.899 Other long term (current) drug therapy; Z71.85 Encounter for immunization safety counseling | CPT/HCPCS: 36415; 80076; 82565; 85025; 86140; 99214 ==

== ENCOUNTER → 2023-11-15 15:39 | Outpatient (BNVA) | payer MEDICARE, MEDICAID, SELFPAY | PROVIDERS: PCP Family Medicine; Visit Provider Internal Medicine | DX: I26.92 Saddle embolus of pulmonary artery without acute cor pulmonale (principal); I82.401 Acute embolism and thrombosis of unspecified deep veins of right lower extremity; I51.3 Intracardiac thrombosis, not elsewhere classified; I27.20 Pulmonary hypertension, unspecified; E78.2 Mixed hyperlipidemia; E11.9 Type 2 diabetes mellitus without complications; Z79.84 Long term (current) use of oral hypoglycemic drugs; Z87.891 Personal history of nicotine dependence; Z79.01 Long term (current) use of anticoagulants | CPT/HCPCS: 99214 ==

== ENCOUNTER → 2023-11-30 11:22 | Outpatient (BNVA) | payer MEDICARE, MEDICAID, SELFPAY | PROVIDERS: PCP Family Medicine; Visit Provider Family Medicine | DX: Z00.00 Encounter for general adult medical examination without abnormal findings (principal); E11.8 Type 2 diabetes mellitus with unspecified complications; E78.2 Mixed hyperlipidemia; E11.9 Type 2 diabetes mellitus without complications; Z12.5 Encounter for screening for malignant neoplasm of prostate; R53.83 Other fatigue; R05.3 Chronic cough; T85.9XXA Unspecified complication of internal prosthetic device, implant and graft, initial encounter | CPT/HCPCS: 80053; 80061; 83036; 84403; 85025; G0103 ==

== ENCOUNTER → 2023-12-09 08:15 | Outpatient (BNVA) | payer MEDICARE, MEDICAID, SELFPAY | PROVIDERS: PCP Family Medicine; Visit Provider Surgery | DX: R13.10 Dysphagia, unspecified (principal); R05.3 Chronic cough; R49.0 Dysphonia | CPT/HCPCS: 99214 ==

== ENCOUNTER 2024-01-05 09:41 | Day surgery (SDC) | payer MEDICARE, SELFPAY ==
[2024-01-05 10:33] VITALS: BP 123/78; PULSE 61; RESP 16; TEMP 36.4; O2SAT 99
[2024-01-05] MEDS: sodium chloride 0.9% 1,000 ML 30 ML IV (10:40)
[2024-01-05 10:44] LABS: Glucose Point of Care 130 mg/dL (70-110)
--- NOTE | 2024-01-05 14:07 | P.MISC_ITS ---
Miscellaneous Note Note: Patient presented to us with complaints of constant tightness feeling in his neck for months. No trouble swallowing, but is having increased frequency of severe coughing spells that result in vomiting. Of concern, he and his have also noticed that his R submandibular tissues and face now seem larger than the other side. I am unable to palpate any masses in this area, but he does exhibit some asymmetry in this area. He denies any tooth iinfections, cavities, or abscesses. He denies any acid reflux. Due to concern for possible un- characterized airway deformity, patient would be safer to obtain ENT consult before proceeding with EGD to evaluate his symptoms. Patient in agreement.
== END 2024-01-05 12:50 | disposition home or self-care (01) ==
PROVIDERS: PCP Family Medicine; Visit Provider Surgery
PROC: 0DJ08ZZ Inspection of Upper Intestinal Tract, Via Natural or Artificial Opening Endoscopic (ICD-10-PCS; CPT 43235; principal; 2024-01-05 11:30)
DX: R13.10 Dysphagia, unspecified (principal); Z53.8 Procedure and treatment not carried out for other reasons
CPT/HCPCS: 36416; 82962; J7030

== ENCOUNTER 2024-02-02 12:49 | Outpatient (CLI) | payer MEDICARE, MEDICAID, SELFPAY ==
--- NOTE | 2024-02-02 12:50 | CT_ITS ---
WS: [id number] CT NECK WITH CONTRAST HISTORY: CHRONIC LARYNGITIS/CHRONIC RHINITIS/FB SENSATION,THROAT TECHNIQUE: Contiguous 2 mm axial images are performed through the neck with intravenous contrast. Sag ittal and coronal reformats are also submitted. All CT scans at [facility] use at least one o f these dose optimization techniques: automated exposure control; mA and/or kV adjustment per patient size (includes targeted exams where dose is matched to clinical indication); or iterative reconstruc tion. CONTRAST: CONTRAST: Omnipaque 350; 100 mL IV. DLP: 214.09 mGy.cm COMPARISON: None available. Nasopharynx, oropharynx, hypopharynx and larynx are unremarkable. No soft tissue masses or abnormal e nhancement. Torus tubarius and fossa of Rosenmuller and parapharyngeal fat are normal. No significant lymphadenopathy is identified. Thyroid gland and salivary glands are normally enhancing with no masses. No osseous abnormalities. Visualized portions of the skull base demonstrate no abnormalities. Orbits and globes are within norm al limits. No soft tissue masses. Visualized paranasal sinuses and mastoid air cells are normal. Lung apices are clear. Vagal nerve stimulator LEFT upper thorax. CT/CT neck w con* [id number] IMPRESSION: 1. No neck mass or adenopathy. 2. No laryngeal abnormality.
[2024-02-02] MEDS: iohexol 350 mg/mL 500 mL Btl (per mL) IV (13:09)
== END 2024-02-02 12:50 | disposition home or self-care (01) ==
LOC: RAD 12:49
PROVIDERS: PCP Family Medicine; Visit Provider Otolaryngology
DX: J37.0 Chronic laryngitis (principal); R09.A2 Foreign body sensation, throat; J38.01 Paralysis of vocal cords and larynx, unilateral
CPT/HCPCS: 70491; Q9967

== ENCOUNTER → 2024-03-09 14:13 | Outpatient (BNVA) | payer MEDICARE, MEDICAID, SELFPAY | PROVIDERS: PCP Family Medicine; Visit Provider Internal Medicine Rheumatology | DX: M45.9 Ankylosing spondylitis of unspecified sites in spine (principal); Z71.85 Encounter for immunization safety counseling; M46.90 Unspecified inflammatory spondylopathy, site unspecified; Z79.899 Other long term (current) drug therapy; Z86.69 Personal history of other diseases of the nervous system and sense organs; Z11.1 Encounter for screening for respiratory tuberculosis; Z11.59 Encounter for screening for other viral diseases | CPT/HCPCS: 36415; 80076; 82565; 85025; 85651; 86140; 99214 ==

== ENCOUNTER → 2024-03-15 12:00 | Outpatient (BNVA) | payer MEDICARE, MEDICAID, SELFPAY | PROVIDERS: PCP Family Medicine; Visit Provider Specialist | DX: G40.802 Other epilepsy, not intractable, without status epilepticus (principal); R10.32 Left lower quadrant pain; N50.89 Other specified disorders of the male genital organs; G58.8 Other specified mononeuropathies; G25.0 Essential tremor; Z96.89 Presence of other specified functional implants; Z79.899 Other long term (current) drug therapy | CPT/HCPCS: 99214 ==

== ENCOUNTER → 2024-03-16 13:12 | Outpatient (BNVA) | payer MEDICARE, MEDICAID, SELFPAY | PROVIDERS: PCP Family Medicine; Visit Provider Family Medicine | DX: E78.2 Mixed hyperlipidemia (principal); E11.9 Type 2 diabetes mellitus without complications; E11.8 Type 2 diabetes mellitus with unspecified complications; K59.00 Constipation, unspecified; W57.XXXA Bitten or stung by nonvenomous insect and other nonvenomous arthropods, initial encounter | CPT/HCPCS: 80053; 80061; 83036; 84443; 85025; 86618; 86666; 86757 ==

== ENCOUNTER 2024-04-18 11:46 | Outpatient (CLI) | payer MEDICARE, MEDICAID, SELFPAY ==
--- NOTE | 2024-04-18 11:52 | CT_ITS ---
WS: [id number] CT ABDOMEN AND PELVIS WITH CONTRAST HISTORY: GENERALIZED ABDOMINAL PAIN TECHNIQUE: Imaging performed of the abdomen and pelvis with IV contrast. Single phase imaging of the abdomen. Coronal and sagittal reformats are submitted. All CT scans at [facility] use at [address] one of these dose optimization techniques: automated exposure control; mA and/or kV adjustment per patient size (includes targeted exams where dose is matched to clinical indication); or iterative re construction. IV CONTRAST: Omnipaque 350; 100 mL IV. Oral contrast: Yes. DLP: 807.28 mGy.cm COMPARISON: 07/25/2022 Lower thorax: Lung bases are clear. Heart is normal size. No hiatal hernia. Liver/biliary system: Normal size with no intrahepatic dilatation. Gallbladder: Mildly contracted. Pancreas: Normal size pancreas and pancreatic duct. No adjacent inflammation. Spleen: Normal size spleen. No mass or infarct. Adrenal glands: Normal. Right kidney: Normal. Left kidney: Normal. Aorta: Mild atherosclerosis. SMA and celiac axis with a common origin. Lymphadenopathy: None. Free fluid: None. GI tract: Normally distended stomach. No small bowel obstruction. Normal appendix. No significant div erticular disease. No colitis. Abdominal wall: Fat containing umbilical hernia. Pelvis: Urinary bladder is well distended. No free fluid. Central prostate gland calcifications. Bones: Bilateral fusion and erosions of the SI joints. Calcification along the anterior longitudinal ligament. CT/CT abdomen pelvis w con* [id number] IMPRESSION: 1. No acute abdominal or pelvic abnormalities identified. No diverticulosis or colitis. No obstruction. 2. Normal appendix. 3. Mildly contracted gallbladder is probably due to nonfasting state. 4. No renal obstruction. 5. Ankylosing spondylitis suspected. Partial fusion with erosions of the SI germania ints with squaring of the lumbar vertebral bodies.
[2024-04-18] MEDS: iohexol 350 mg/mL 500 mL Btl (per mL) IV (13:12)
[2024-04-18] MEDS: iohexol 350 mg/mL 500 mL Btl (per mL) PO (13:13)
== END 2024-04-18 11:47 | disposition home or self-care (01) ==
LOC: RAD 11:47
PROVIDERS: PCP Family Medicine; Visit Provider Internal Medicine
DX: R10.84 Generalized abdominal pain (principal)
CPT/HCPCS: 74177

== ENCOUNTER 2024-06-02 16:59 | Emergency (ER) | payer MEDICARE, SELFPAY ==
[2024-06-02 17:04] VITALS: BP 138/91; PULSE 64; RESP 16; TEMP 36.4; O2SAT 98; BMI 28.3
--- NOTE | 2024-06-02 17:27 | USR_ITS ---
PROCEDURE INFORMATION: Exam: US Duplex Right Lower Extremity Veins, Limited Exam date and time: 06/02/2024 5:44 PM Age: 54 years old Clinical indication: Pain; Leg, lower; Right; Additional info: Calf pain, HX of dvt TECHNIQUE: Imaging protocol: Real-time duplex ultrasound of the right extremity with 2-D johnson scale, color Doppler flow and spectral waveform analysis including responses to compression and other maneuvers (when performed) with image documentation. Limited exam was focused on the right lower extremity veins. COMPARISON: CT knee RT wo con* [id number] 09/16/2022 6:42 AM FINDINGS: Right deep veins: Unremarkable. The common femoral, femoral, popliteal, posterior tibial and peroneal veins are patent without thrombus. Normal Doppler waveforms. Normal compressibility and/or augmentation response. Superficial veins: Greater saphenous vein at the saphenofemoral junction is patent without thrombus. Soft tissues: Unremarkable. US/[place] [id number] IMPRESSION: No sonographic evidence of deep vein thrombosis.
--- NOTE | 2024-06-02 17:33 | W.ED.EXTPRO ---
HPI - Extremity Problem General: Chief complaint: Extremity Problem,Nontraumatic Stated complaint: clinic sent check for blood clot in leg Time Seen by Provider: 06/02/24 17:28 History of Present Illness: 54-year-old male patient comes in today with right calf pain. Patient has a history of DVT and pulmonary embolism and is concerned. Patient was first seen at the walk-in clinic and then was referred to the ER for ultrasound to rule out DVT. Patient is presently on apixaban 5 mg twice a day. Patient denies any missed doses. Patient reports no chest pain or shortness of breath. Patient has a history of diabetes mellitus type 2, COPD, and high cholesterol. Related Data Home Medications Medication Instructions Recorded Confirmed midazolam 5 mg/spray (0.1 mL) 1 spray intranasal ONCE PRN 01/03/24 06/02/24 nasal spray Seizure Activity Previous Rx's Medication Instructions Recorded blood-glucose meter (Accu-Chek #1 ea 07/18/19 Magali Plus Meter) clobetasol 0.05 % topical cream 1 applic topical BID #45 grams 12/25/21 accucheck meter #1 ea 04/30/22 ketoconazole 2 % shampoo 1 applic topical .COMPLEX #120 mL 07/17/22 Diabetic shoes #1 ea 09/16/22 sumatriptan succinate 50 mg tablet See Rx Instructions PO .COMPLEX 12/31/22 (Imitrex) #14 tabs blood sugar diagnostic (Accu-Chek #100 ea 04/14/23 Magali Plus test strips) lancets 31 gauge #100 ea 04/14/23 blood sugar diagnostic (Accu-Chek #100 ea 04/27/23 Guide test strips) zonisamide 100 mg capsule 600 mg (6 x 100 mg) PO DAILY #540 11/16/23 caps lancets (Accu-Chek Softclix #100 ea 02/15/24 Lancets) ramipril 2.5 mg capsule 2.5 mg PO DAILY #30 caps 03/03/24 hydrocodone 5 mg-acetaminophen 325 1 tab PO BID PRN pain 30 days #60 03/09/24 mg tablet tabs ondansetron HCl 4 mg tablet 4 mg PO Q8H PRN nausea and 03/09/24 vomiting #30 tabs secukinumab 150 mg/mL subcutaneous 300 mg (2 mL) SUBCUT .O1ordms #2 mL 03/09/24 pen injector (Cosentyx Pen 300 mg/2 Pens () apixaban 5 mg tablet (Eliquis) 5 mg PO BID #60 tabs 03/16/24 budesonide-formoterol HFA 80 2 puff inhalation BID #30.6 grams 03/16/24 mcg-4.5 mcg/actuation aerosol inhaler (Symbicort) fenofibrate 160 mg tablet 160 mg PO DAILY #90 tabs 03/16/24 metformin 1,000 mg tablet 1,000 mg PO DAILY #90 tabs 03/16/24 ondansetron 4 mg disintegrating 4 mg PO Q8H #30 tabs 03/16/24 tablet rosuvastatin 20 mg tablet See Rx Instructions .Route 03/16/24 .COMPLEX #90 tabs suvorexant 20 mg tablet (Belsomra) 20 mg PO BEDTIME 30 days #30 tabs 03/16/24 Diabetic shoes with inserts #1 ea 03/21/24 levalbuterol tartrate 45 2 inh inhalation Q6H PRN shortness 03/21/24 mcg/actuation aerosol inhaler of breath or wheezing #15 grams (Xopenex HFA) polyethylene glycol 3350 17 4 g PO DAILY #238 grams 03/21/24 gram/dose oral powder (Miralax) semaglutide 0.25 mg or 0.5 mg (2 0.25 mg (0.368 mL) SUBCUT .COMPLEX 03/21/24 mg/3 mL) subcutaneous pen injector #3 mL (Ozempic) propranolol 20 mg tablet 20 mg PO BID #60 tabs 05/09/24 clonazepam 0.5 mg tablet (Klonopin) 0.5 mg PO DAILY PRN anxiety #30 05/29/24 tabs Allergies Allergy/AdvReac Type Severity Reaction Status Date / Time carbamazepine [From Tegretol] Allergy Unresponsiv Verified 06/02/24 16:40 e coconut Allergy ALGY-Rash Verified 06/02/24 16:40 gabapentin Allergy ALGY-Hives Verified 06/02/24 16:40 phenytoin [From Dilantin] Allergy ADV-Weaknes Verified 06/02/24 16:40 s Review of Systems General: Reports: 10 or more systems reviewed and unremarkable except in HPI and below Musc: Reports: extremity pain PFSH ED PFSH: Medical History Enrolled in chronic care management Right knee injury Inflammatory arthritis Axial spondyloarthritis Headache Facial droop Immunization counseling High risk medication use Contact dermatitis Medication reaction Cellulitis Diabetes Hyperlipidemia Seizures Insomnia Generalized epilepsy, intractable Surgical History H/O left wrist surgery Status post colonoscopy (11/05/21) Status post VNS (vagus nerve stimulator) placement H/O repair of left rotator cuff 2013 Family History Other Adopted No pertinent family history Social History Smoking and tobacco/nicotine status: former use of tobacco/nicotine Quit status (tobacco/nicotine): has quit using Year quit tobacco: 2021 Physical Exam Const: COMMON NORMALS: alert HENMT: COMMON NORMALS: normocephalic HEAD & SCALP: normocephalic Neck/C-Spine: COMMON NORMALS: full ROM Resp: COMMON NORMALS: normal respiratory effort and clear to auscultation bilaterally AUSCULTATION: clear to auscultation bilaterally Cardio: COMMON NORMALS: regular rate RATE: regular rate GI: COMMON NORMALS: non-tender Back/Pelvis: COMMON NORMALS: thoracic and lumbar spine normal to inspection Extremity: RIGHT LOWER EXTREMITY: Yes lower leg (Popliteal angle tenderness along with calf tenderness, no swelling) Neuro: SENSORIUM/ORIENTATION: Yes alert Skin: COMMON NORMALS: turgor normal GENERAL SKIN EXAM: turgor normal Course Vital Signs: Vital signs: Vital Signs Temperature 97.5 F L 06/02/24 17:04 Pulse Rate 94 06/02/24 18:36 Respiratory Rate 16 06/02/24 18:36 Blood Pressure 114/75 06/02/24 18:36 Pulse Oximetry 95 06/02/24 18:36 Oxygen Delivery Me thod Room Air 06/02/24 18:36 MDM - Extremity (Nontraumatic) Medical Decision Making 54-year-old male patient comes in today for concerns of posterior calf pain to the right lower extremity. On exam patient has some tenderness in the popliteal angle of the knee along with the posterior calf. No significant swelling is noted. Distal pulses are intact. Differential diagnosis includes but not limited to calf strain, Mathews's cyst, DVT. Ultrasound noted no DVT in the leg. Reviewed exam with patient with recommendation for treatment and follow-up. Patient reported understanding agreed to plan. Lab Data Radiology Impressions Venous Duplex 06/02/24 17:27 IMPRESSION: No sonographic evidence of deep vein thrombosis. All radiology interpretation(s) finalized by discharge Discharge Plan Discharge Patient Disposition: Home Clinical Impression: Leg pain, right, History of DVT (deep vein thrombosis) Condition: Stable Prescriptions: No Action (DME) blood-glucose meter [Accu-Chek Magali Plus Meter] Misc See Rx Instructions .ROUTE .MEDSUPPLY Qty: 1 0RF Rx Instructions: As directed (DME) Diabetic shoes See Rx Instructions .Route .MEDSUPPLY Qty: 1 0RF Rx Instructions: As directed hydrocodone-acetaminophen 5-325 mg tablet 1 tab PO BID PRN (Reason: pain) 30 Days Qty: 60 0RF ondansetron HCl 4 mg tablet 4 mg PO Q8H PRN (Reason: nausea and vomiting) Qty: 30 1RF Cosentyx Pen (2 Pens) 150 mg/mL pen injector 300 mg SUBCUT .[id number] Qty: 2 5RF Eliquis 5 mg tablet 5 mg PO BID Qty: 60 4RF budesonide-formoterol [Symbicort] 80-4.5 mcg/actuation HFA aerosol inhaler 2 puff inhalation BID Qty: 30.6 3RF fenofibrate 160 mg tablet 160 mg PO DAILY Qty: 90 2RF Rx Instructions: Take 1 tablet by mouth daily. metformin 1,000 mg tablet 1,000 mg PO DAILY Qty: 90 2RF Hold Instructions: Resume on 07/02/23. Rx Instructions: Take 1 tablet by mouth daily. ondansetron 4 mg tablet,disintegrating 4 mg PO Q8H Qty: 30 0RF rosuvastatin 20 mg tablet See Rx Instructions .ROUTE .COMPLEX Qty: 90 0RF Dose Instruction: Take 1 tablet by mouth once daily Rx Instructions: Take 1 tablet by mouth once daily Belsomra 20 mg tablet 20 mg PO BEDTIME 30 Days Qty: 30 3RF polyethylene glycol 3350 [Miralax] 17 gram/dose powder 4 g PO DAILY Qty: 238 3RF (DME) Diabetic shoes with inserts See Rx Instructions .Route .MEDSUPPLY Qty: 1 0RF Rx Instructions: As directed Ozempic 0.25 mg or 0.5 mg (2 mg/3 mL) pen injector 0.25 mg SUBCUT .COMPLEX Qty: 3 3RF Rx Instructions: 0.25 mg subcutaneously weekly for 4 weeks then increase to 0.5 weekly; (DME) accucheck meter See Rx Instructions .Route .MEDSUPPLY Qty: 1 0RF Rx Instructions: As directed ketoconazole 2 % shampoo 1 applic topical .COMPLEX Qty: 120 6RF Rx Instructions: 1 applic topically .2x weekly; Lather into scalp 2-3 weekly. Allow to sit on scalp for 5 minutes before rinsing. sumatriptan succinate [Imitrex] 50 mg tablet See Rx Instructions PO .COMPLEX Qty: 14 0RF Rx Instructions: take 1 tab at onset of headache; if no relief may repeat 1 tab after at least 2 hrs; max = 2 tabs/24 hr PO clobetasol 0.05 % cream 1 applic topical BID Qty: 45 2RF (DME) Accu-Chek Magali Plus test strp Strip See Rx Instructions .ROUTE .MEDSUPPLY Qty: 100 3RF Rx Instructions: three times a day (DME) lancets 31 gauge misc See Rx Instructions miscellaneous .MEDSUPPLY Qty: 100 2RF Rx Instructions: As directed; test 3 x day (DME) Accu-Chek Guide test strips Strip See Rx Instructions .Route Qty: 100 6RF Rx Instructions: use to check blood sugar daily and as needed zonisamide 100 mg capsule 600 mg PO DAILY Qty: 540 5RF (DME) lancets [Accu-Chek Softclix Lancets] Misc See Rx Instructions .ROUTE .COMPLEX Qty: 100 0RF Dose Instruction: USE 1 TO CHECK GLUCOSE ONCE DAILY DIRECTED *E11.9* Rx Instructions: USE 1 TO CHECK GLUCOSE ONCE DAILY DIRECTED *E11.9* ramipril 2.5 mg capsule 2.5 mg PO DAILY Qty: 30 3RF levalbuterol tartrate [Xopenex HFA] 45 mcg/actuation HFA aerosol inhaler 2 inh inhalation Q6H PRN (Reason: shortness of breath or wheezing) Qty: 15 3RF propranolol 20 mg tablet 20 mg PO BID Qty: 60 5RF Rx Instructions: Take 1 tablet twice daily clonazepam [Klonopin] 0.5 mg tablet 0.5 mg PO DAILY PRN (Reason: anxiety) Qty: 30 3RF midazolam 5 mg/spray (0.1 mL) spray,non-aerosol 1 spray intranasal ONCE PRN (Reason: Seizure Activity) Discharge Orders: Discharge ED (Routine); Ordered 06/02/24 Ordered By: Amari Ray Discharge Diet: Usual diet Discharge Activity: Increase activity as tolerated Patient Instructions: Leg Pain (ED) Activity Restrictions/Additional Instructions: Use acetaminophen for pain. Ice or heat for further pain relief. Follow-up with primary care for further instructions. Return to ED for new concerns or worsening symptoms. Coding Level of Care Code ED Associate Business Analyst for Pinky Guerra
[2024-06-02 18:36] VITALS: BP 114/75; PULSE 94; RESP 16; O2SAT 95
[2024-06-02 18:47] VITALS: BP 114/75; PULSE 94; RESP 16; O2SAT 95
== END 2024-06-02 18:48 | disposition home or self-care (01) ==
PROVIDERS: Emergency Provider Nurse Practitioner Family
DX: M79.604 Pain in right leg (principal); Z86.718 Personal history of other venous thrombosis and embolism; Z79.01 Long term (current) use of anticoagulants; Z79.84 Long term (current) use of oral hypoglycemic drugs; E78.5 Hyperlipidemia, unspecified; E11.9 Type 2 diabetes mellitus without complications
CPT/HCPCS: 93971; 99284

== ENCOUNTER → 2024-07-06 15:05 | Outpatient (BNVA) | payer MEDICARE, SELFPAY | PROVIDERS: Visit Provider Family Medicine | DX: R51.9 Headache, unspecified (principal); R56.9 Unspecified convulsions; E11.9 Type 2 diabetes mellitus without complications; K52.9 Noninfective gastroenteritis and colitis, unspecified; G25.0 Essential tremor; Z79.899 Other long term (current) drug therapy | CPT/HCPCS: 80053; 83036; 84443 ==

== ENCOUNTER → 2024-07-20 13:20 | Outpatient (BNVA) | payer MEDICARE, SELFPAY | PROVIDERS: Visit Provider Internal Medicine Rheumatology | DX: Z79.899 Other long term (current) drug therapy (principal); M46.90 Unspecified inflammatory spondylopathy, site unspecified; Z71.85 Encounter for immunization safety counseling | CPT/HCPCS: 36415; 80076; 82565; 85025; 85651; 86140; 99214 ==

== ENCOUNTER 2024-08-04 13:44 | Outpatient (CLI) | payer MEDICARE, SELFPAY ==
--- NOTE | 2024-08-04 13:49 | XR_ITS ---
WS: [id number] Cervical spine, 3 views, 08/04/2024 Clinical Data: neck pain; ankylosing spondylitis Comparison: Cervical spine, 05/05/2021 Findings: No compression fractures are seen. There is degenerative disc narrowing of the vertebral jaydon dies C3-C4 and C5-C7. There is calcification of the anterior longitudinal ligament at all cervical le vels with minimal calcification at C4-C5. There is osteoarthritis of all the cervical vertebral morales s C2-C7. There is no prevertebral soft tissue swelling. The odontoid is unremarkable. There is a stim ulator adjacent to the C7, T1 and T2 vertebral bodies on the left. The soft tissues of the neck and t he lung apices are normal. XR/XR cervical spine 3V* [id number] Impression: 1. Multilevel degenerative disc narrowing along with calcification of the anter ior longitudinal ligament at all cervical levels. 2. Osteoarthritis of the cervical vertebral bodies C2-C7. 3. Bridging osteophytes may be seen with ankylosing spondylitis.
== END 2024-08-04 13:45 | disposition home or self-care (01) ==
LOC: RAD 13:45
PROVIDERS: PCP Family Medicine; Visit Provider Family Medicine
DX: M48.02 Spinal stenosis, cervical region (principal); M47.892 Other spondylosis, cervical region; M25.78 Osteophyte, vertebrae; R93.7 Abnormal findings on diagnostic imaging of other parts of musculoskeletal system
CPT/HCPCS: 72040

== ENCOUNTER 2024-08-09 09:55 | Outpatient (CLI) | payer MEDICARE, SELFPAY ==
--- NOTE | 2024-08-09 10:00 | CT_ITS ---
WS: [id number] LDCT LUNG CANCER SCREENING TECHNIQUE: Noncontrast CT of the chest with coronal and sagittal reformatted images. CLINICAL INFORMATION: priti dep in remission; 27.75yr pk yr; quit 2021 COMPARISON: CTA chest 06/29/2022 DLP: 67.22 mGy.cm DIvol: Mean CTDIvol: 1.60 (mGy) All CT scans at [facility] use at least one of these dose optimization techniques: automat ed exposure control; mA and/or kV adjustment per patient size (includes targeted exams where dose is matched to clinical indication); or iterative reconstruction. FINDINGS: Lungs are well aerated. No suspicious pulmonary parenchymal opacities. Normal caliber thoracic aorta. Coronary calcification. No mediastinal or hilar lymphadenopathy. No ax illary lymphadenopathy. Normal GE junction. Adrenal glands are normal. Ankylosis thoracic spine. Moderate thoracic kyphosis. CT/CT lung screening [id number] IMPRESSION: LUNG-RADS: 1-Negative FOLLOW UP: 12 Month: Continue annual screening with LDCT
== END 2024-08-09 09:56 | disposition home or self-care (01) ==
LOC: RAD 09:58
PROVIDERS: PCP Family Medicine; Visit Provider Family Medicine
DX: Z12.2 Encounter for screening for malignant neoplasm of respiratory organs (principal); F17.211 Nicotine dependence, cigarettes, in remission; I25.10 Atherosclerotic heart disease of native coronary artery without angina pectoris; M24.69 Ankylosis, other specified joint; M43.24 Fusion of spine, thoracic region; M40.294 Other kyphosis, thoracic region
CPT/HCPCS: 71271

== ENCOUNTER → 2024-08-14 15:20 | Outpatient (BNVA) | payer MEDICARE, SELFPAY | PROVIDERS: PCP Family Medicine; Visit Provider Internal Medicine | DX: E11.9 Type 2 diabetes mellitus without complications (principal); I27.20 Pulmonary hypertension, unspecified; E78.2 Mixed hyperlipidemia; Z86.711 Personal history of pulmonary embolism; Z79.01 Long term (current) use of anticoagulants; Z86.718 Personal history of other venous thrombosis and embolism; Z79.84 Long term (current) use of oral hypoglycemic drugs | CPT/HCPCS: 99214 ==

== ENCOUNTER 2024-11-03 09:24 | Outpatient (CLI) | payer MEDICARE, SELFPAY ==
--- NOTE | 2024-11-03 09:30 | CT_ITS ---
WS: [id number] CT HEAD WITHOUT AND WITH CONTRAST TECHNIQUE: Noncontrast and contrast-enhanced CT of the head. CLINICAL INFORMATION: worsening headaches; has ankylosing spondylitis COMPARISON: 2022 DLP: 2249.[address] scans at [facility] use at least one of these dose optimization techniques: automated exposure control; mA and/or kV adjustment per patient size (includes targeted exams where dose is matched to clinical indication); or iterative reconstruction. FINDINGS: No evidence intracranial hemorrhage or mass effect. Ventricular system and basal cisterns are patent. Mild periventricular small vessel changes. No significant parenchymal volume loss. Paranasal sinuses and mastoid air cells are well aerated. No abnormal gadolinium enhancement. No other acute findings. No significant changes since 2022. CT/CT head wo/w con [id number] IMPRESSION: 1. No acute intracranial findings. 2. Minimal small vessel changes. No significant parenchymal volume loss. 3. No abnormal intracranial enhancement.
[2024-11-03] MEDS: iohexol 350 mg/mL 500 mL Btl (per mL) IV (09:41)
== END 2024-11-03 09:25 | disposition home or self-care (01) ==
LOC: RAD 09:26
PROVIDERS: PCP Family Medicine; Visit Provider Family Medicine
DX: R51.9 Headache, unspecified (principal); R56.9 Unspecified convulsions; R93.0 Abnormal findings on diagnostic imaging of skull and head, not elsewhere classified
CPT/HCPCS: 70470

== ENCOUNTER → 2024-11-23 14:24 | Outpatient (BNVA) | payer MEDICARE, MEDICAID, SELFPAY | PROVIDERS: PCP Family Medicine; Visit Provider Specialist | DX: G40.802 Other epilepsy, not intractable, without status epilepticus (principal); R10.32 Left lower quadrant pain; N50.89 Other specified disorders of the male genital organs; G58.8 Other specified mononeuropathies; G25.0 Essential tremor; Z96.89 Presence of other specified functional implants; Z79.899 Other long term (current) drug therapy | CPT/HCPCS: 95970; 99214 ==

== ENCOUNTER → 2024-11-30 11:45 | Outpatient (BNVA) | payer MEDICARE, MEDICAID, SELFPAY | PROVIDERS: PCP Family Medicine; Visit Provider Internal Medicine Rheumatology | DX: M46.90 Unspecified inflammatory spondylopathy, site unspecified (principal); Z71.85 Encounter for immunization safety counseling; Z79.899 Other long term (current) drug therapy | CPT/HCPCS: 36415; 80076; 82565; 85025; 85651; 86140; 99214 ==